=== PATIENT | male | born 1975 | race Caucasian/White ===

== ENCOUNTER 2018-06-02 19:20 | Emergency (ER) | payer OTHER ==
[~2018-06-02] VITALS: Ht 190.5 cm; Wt 172.4 kg
[~2018-06-02 19:20] MED LIST: IBUP800 PO; LANS30EC
[2018-06-02] MEDS ORDERED: Bactrim Ds Tab1 EACH PO (21:25)
[2018-06-02] MEDS ORDERED: Norco 5-325 Ta1 EACH PO (21:25)
[2018-06-02] MEDS ORDERED: CEPH500 PO (21:25)
[2018-06-02] MEDS ORDERED: ATOR20 (21:39)
[2018-06-02] MEDS ORDERED: METF500C PO (21:39)
[2018-06-02] MEDS ORDERED: LISI5 PO (21:39)
[2018-06-02] MEDS ORDERED: FLUO10 (21:40)
== END 2018-06-02 21:41 | disposition home or self-care (01) ==
LOC: ER 19:20
DX: T24.222A Burn of second degree of left knee, initial encounter (principal); T31.0 Burns involving less than 10% of body surface; E11.622 Type 2 diabetes mellitus with other skin ulcer; L97.919 Non-pressure chronic ulcer of unspecified part of right lower leg with unspecified severity; X08.8XXA Exposure to other specified smoke, fire and flames, initial encounter; Z91.040 Latex allergy status; Z88.8 Allergy status to other drugs, medicaments and biological substances; Z79.899 Other long term (current) drug therapy; E11.9 Type 2 diabetes mellitus without complications; I10 Essential (primary) hypertension
CPT/HCPCS: 16020; 99283-25

== ENCOUNTER → 2020-06-19 | Outpatient (CLI) | payer OTHER ==
[~2020-06-19] MED LIST changes: +ATOR20; +Bactrim Ds Tab1 EACH PO; +CEPH500 PO; +FLUO10; +LISI5 PO; +METF500C PO; +Norco 5-325 Ta1 EACH PO
== END | disposition home or self-care (01) ==
LOC: LAB EV 11:54 → LAB SHORT 11:54
DX: L02.91 Cutaneous abscess, unspecified (principal)
CPT/HCPCS: 87070; 87075; 87076; 87077; 87186; 87205

== ENCOUNTER → 2020-10-02 | Outpatient (CLI) | payer OTHER ==
[2020-10-02 11:08] LABS: Source, Urine Clean Catch
[2020-10-02 12:53] LABS: Appearance, Urine Hazy (Clear); Bilirubin, Urine Neg (Neg); Blood, Urine 2+ (Neg); Glucose Qualitative, Urine 4+ (Neg); Ketones, Urine Neg (Neg); Leukocyte Esterase, Urine 3+ (Neg); Nitrite, Urine Neg (Neg); Protein, Urine Neg (Neg); Urobilinogen, Urine NORM (Normal)
[2020-10-02 13:03] LABS: Color, Urine Pale Yellow (P-Yellow)
[2020-10-02 13:06] LABS: Bacteria Many /hpf; Squamous Epithelial Cells Rare /hpf (Few); White Blood Cells, Urine 50-100 /hpf (0-5)
== END | disposition home or self-care (01) ==
LOC: LAB 08:10 → LAB SHORT 08:10
PROVIDERS: Nurse Practitioner Family
DX: E11.65 Type 2 diabetes mellitus with hyperglycemia (principal); R39.89 Other symptoms and signs involving the genitourinary system
CPT/HCPCS: 81001; 82043; 87077; 87086; 87186

== ENCOUNTER → 2020-12-21 | Outpatient (CLI) | payer OTHER ==
[~2020-12-21] MED LIST changes: +Dexamethasone4 MG PO
[2020-12-21 15:06] LABS: BASOPHILS ABSOLUTE AUTO 0.01 K/mm3 (0.00-0.23); BASOPHILS PERCENT AUTO 0 % (0-2); EOSINOPHILS PERCENT AUTO 0 % (0-6); Hematocrit 49.3 % (37.0-53.0); Hemoglobin 17.4 g/dL (13.5-17.5); Mean Corpuscular HGB 30.1 pg (26.0-34.0); Mean Corpuscular HGB Conc 35.3 g/dL (31.5-36.5); Mean Corpuscular Volume 85 fL (80-100); RDW Coefficient Variation 13.1 % (11.7-14.2); RDW Standard Deviation 40.2 fL (35.1-46.3); Red Blood Cell Count 5.79 M/mm3 (4.30-5.90); White Blood Cell Count 5.92 K/mm3 (4.00-11.30)
[2020-12-21 15:15] LABS: Albumin, Blood 3.2 g/dL (3.4-5.0); Albumin/Globulin Ratio 0.7 (0.8-1.8); Bilirubin, Total 1.2 mg/dL (0.1-1.0); Creatinine, Blood 1.3 mg/dL (0.60-1.20); Globulin, Blood 4.7 g/dL (2.2-4.0); Potassium, Blood 4.8 mmol/L (3.5-5.5); Total Protein, Blood 7.9 g/dL (6.4-8.2)
[2020-12-21 15:23] LABS: IMMATURE GRAN ABSOLUTE AUTO 0.02 K/mm3 (0.00-0.10); IMMATURE GRAN PERCENT AUTO 0 % (0-1); LYMPHOCYTES ABSOLUTE AUTO 1.25 K/mm3 (0.84-5.20); MONOCYTES ABSOLUTE AUTO 0.33 K/mm3 (0.16-1.47); MONOCYTES PERCENT AUTO 6 % (4-13); Mean Platelet Volume 11.8 fL (9.1-12.4); NEUTROPHILS ABSOLUTE AUTO 4.31 K/mm3 (1.96-9.15); NEUTROPHILS PERCENT AUTO 73 % (41-73); Platelet Count 84 K/mm3 (150-400)
[2020-12-21 15:24] LABS: LYMPHOCYTES PERCENT AUTO 21 % (21-46)
== END | disposition home or self-care (01) ==
LOC: LAB 15:00 → LAB SHORT 15:00
PROVIDERS: Physician Assistant Medical
DX: U07.1 COVID-19 (principal)
CPT/HCPCS: 80053; 85025

== ENCOUNTER 2020-12-29 10:54 | Inpatient (IN) | payer OTHER ==
[~2020-12-29] VITALS: Ht 190.5 cm; Wt 137.6 kg
[2020-12-29] MEDS ORDERED: METFORMIN HCL500 M3 PO (11:59)
[2020-12-29] MEDS ORDERED: HUMULIN R500 UNIT/2 SC (12:01)
[2020-12-29] MEDS ORDERED: Oxybutynin Chlo10 MG PO (12:01)
[2020-12-29 12:16] LABS: BASOPHILS ABSOLUTE AUTO 0.02 K/mm3 (0.00-0.23); BASOPHILS PERCENT AUTO 0 % (0-2); EOSINOPHILS ABSOLUTE AUTO 0.31 K/mm3 (0.00-0.68); EOSINOPHILS PERCENT AUTO 3 % (0-6); Hematocrit 47.4 % (37.0-53.0); Hemoglobin 17.2 g/dL (13.5-17.5); IMMATURE GRAN ABSOLUTE AUTO 0.18 K/mm3 (0.00-0.10); IMMATURE GRAN PERCENT AUTO 2 % (0-1); LYMPHOCYTES ABSOLUTE AUTO 0.93 K/mm3 (0.84-5.20); LYMPHOCYTES PERCENT AUTO 8 % (21-46); MONOCYTES ABSOLUTE AUTO 0.67 K/mm3 (0.16-1.47); MONOCYTES PERCENT AUTO 6 % (4-13); Mean Corpuscular HGB 30.4 pg (26.0-34.0); Mean Corpuscular HGB Conc 36.3 g/dL (31.5-36.5); Mean Corpuscular Volume 84 fL (80-100); Mean Platelet Volume 11.4 fL (9.1-12.4); NEUTROPHILS ABSOLUTE AUTO 9.11 K/mm3 (1.96-9.15); NEUTROPHILS PERCENT AUTO 81 % (41-73); Platelet Count 142 K/mm3 (150-400); RDW Coefficient Variation 12.5 % (11.7-14.2); RDW Standard Deviation 37.5 fL (35.1-46.3); Red Blood Cell Count 5.65 M/mm3 (4.30-5.90); White Blood Cell Count 11.22 K/mm3 (4.00-11.30)
[2020-12-29 12:28] LABS: Alanine Aminotransfer (ALT/SGP 20 U/L (12-78); Albumin, Blood 2.3 g/dL (3.4-5.0); Albumin/Globulin Ratio 0.5 (0.8-1.8); Alk Phos 127 U/L (50-136); Anion Gap 12 mmol/L (6-16); Aspartate Aminotrans (AST/SGOT 19 U/L (12-37); Bilirubin, Total 1.4 mg/dL (0.1-1.0); Blood Urea Nitrogen 16 mg/dL (8-24); Bun/Creatinine Ratio 23.4 (12.0-20.0); CO2, Blood 22 mmol/L (21-32); Calcium, Blood 8.5 mg/dL (8.5-10.1); Chloride, Blood 95 mmol/L (98-108); Creatinine, Blood 0.68 mg/dL (0.60-1.20); Globulin, Blood 5.1 g/dL (2.2-4.0); Glomerular Filtration Rate >60 (60-); Glucose, Blood 469 mg/dL (70-99); Potassium, Blood 3.8 mmol/L (3.5-5.5); Sodium, Blood 129 mmol/L (136-145); Total Protein, Blood 7.4 g/dL (6.4-8.2)
[2020-12-29 12:46] LABS: Ferritin, Serum 1325 ng/mL (26-388); Lactate Dehydrogenase (Ld),Bld 390 U/L (100-240)
[2020-12-29] MEDS ORDERED: ATORVASTATIN CA80 M1 PO (15:12)
[2020-12-29] MEDS ORDERED: FLUOXETINE HCL20 M1 PO (15:13)
[2020-12-29] MEDS ORDERED: LOSARTAN POTAS100 M1 PO (15:14)
--- NOTE | 2020-12-29 19:00 | NUR ---
PT ARRIVED TO ROOM AT 1700 AND SETTLED IN. BLUE TOOTH CONTINUOUS PULSE OX APPLIED. SOB WITH ACTIVITY. REPORTS HE HAS "AN INNIE" IN REGARDS TO HIS PENIS AND HE FEELS IT WOULD BE VERY DIFFICULT TO CATH. REPORT FROM ED WAS WHEN HE WENT TO [facility] HIS SATS DROPPED TO 70'S. DID GET HIM UP AND SATS REMAINED IN THE 90'S. QUITE CHATTY. INFORMED PT HE COULD CALL HIS TO BRING IN HIS CPAP FROM HOME.
--- NOTE | 2020-12-30 01:07 | NUR ---
NURSE NOTED PT HEPARIN PLACED ON HOLD FOR 1 HOUR AT 0058 AND WILL BE RESTARTED AT 0158 AT 12UNITS/KG/HR PER PHARMACY.
[2020-12-30 05:02] LABS: BASOPHILS ABSOLUTE AUTO 0.01 K/mm3 (0.00-0.23); BASOPHILS PERCENT AUTO 0 % (0-2); EOSINOPHILS PERCENT AUTO 0 % (0-6); Hematocrit 44.8 % (37.0-53.0); Hemoglobin 15.4 g/dL (13.5-17.5); IMMATURE GRAN ABSOLUTE AUTO 0.13 K/mm3 (0.00-0.10); IMMATURE GRAN PERCENT AUTO 2 % (0-1); LYMPHOCYTES ABSOLUTE AUTO 0.66 K/mm3 (0.84-5.20); LYMPHOCYTES PERCENT AUTO 11 % (21-46); MONOCYTES ABSOLUTE AUTO 0.26 K/mm3 (0.16-1.47); MONOCYTES PERCENT AUTO 4 % (4-13); Mean Corpuscular HGB 29.7 pg (26.0-34.0); Mean Corpuscular HGB Conc 34.4 g/dL (31.5-36.5); Mean Corpuscular Volume 87 fL (80-100); Mean Platelet Volume 11.4 fL (9.1-12.4); NEUTROPHILS ABSOLUTE AUTO 5.25 K/mm3 (1.96-9.15); NEUTROPHILS PERCENT AUTO 83 % (41-73); Platelet Count 92 K/mm3 (150-400); RDW Coefficient Variation 12.6 % (11.7-14.2); RDW Standard Deviation 39.5 fL (35.1-46.3); Red Blood Cell Count 5.18 M/mm3 (4.30-5.90); White Blood Cell Count 6.31 K/mm3 (4.00-11.30)
[2020-12-30 05:19] LABS: Anion Gap 9 mmol/L (6-16); Blood Urea Nitrogen 16 mg/dL (8-24); Bun/Creatinine Ratio 23.7 (12.0-20.0); CO2, Blood 25 mmol/L (21-32); Calcium, Blood 8.7 mg/dL (8.5-10.1); Chloride, Blood 98 mmol/L (98-108); Creatinine, Blood 0.68 mg/dL (0.60-1.20); Glomerular Filtration Rate >60 (60-); Glucose, Blood 305 mg/dL (70-99); Potassium, Blood 5.3 mmol/L (3.5-5.5); Sodium, Blood 132 mmol/L (136-145)
--- NOTE | 2020-12-30 16:54 | NUR ---
SHIFT SUMMARY PT UP TO BEDSIDE COMMODE INDEPENDENTLY TO URINATE. SATS REMAIN STABLE IN LOW 90'S. CAN DROP TO HIGH 80'S BUT RECOVERS QUICKLY. SOB AFTER ACTIVITY AND NEEDS TO BE REMINDED TO NOT TALK SO MUCH. HAS REMAINED STABLE RESPIRATORY LACY THROUGH THE SHIFT. DID REPORT HEADACHE APPROX LUNCHTIME BUT IBUPROFEN ORDERED WAS EFFECTIVE.
--- NOTE | 2020-12-30 22:58 | NUR ---
SPOKE TO DR. GALE REGARDING PT'S CBG OF 428, ADMINISTRATION OF 60 UNITS HUMULIN R, WITH A REPEAT CBG OF 353. PHYSICIAN WANTS TO MONITOR PT'S CBGS. NO FURTHER ORDERS RECEIVED AT THIS TIME. CONTINUE TO MONITOR.
[2020-12-31 05:51] LABS: BASOPHILS ABSOLUTE AUTO 0.02 K/mm3 (0.00-0.23); BASOPHILS PERCENT AUTO 0 % (0-2); EOSINOPHILS PERCENT AUTO 0 % (0-6); Hematocrit 44.7 % (37.0-53.0); Hemoglobin 16.1 g/dL (13.5-17.5); IMMATURE GRAN ABSOLUTE AUTO 0.11 K/mm3 (0.00-0.10); IMMATURE GRAN PERCENT AUTO 1 % (0-1); LYMPHOCYTES ABSOLUTE AUTO 0.62 K/mm3 (0.84-5.20); LYMPHOCYTES PERCENT AUTO 6 % (21-46); MONOCYTES ABSOLUTE AUTO 0.59 K/mm3 (0.16-1.47); MONOCYTES PERCENT AUTO 6 % (4-13); Mean Corpuscular HGB 30.4 pg (26.0-34.0); Mean Corpuscular Volume 85 fL (80-100); Mean Platelet Volume 11.2 fL (9.1-12.4); NEUTROPHILS ABSOLUTE AUTO 9.33 K/mm3 (1.96-9.15); NEUTROPHILS PERCENT AUTO 88 % (41-73); Platelet Count 114 K/mm3 (150-400); RDW Coefficient Variation 12.8 % (11.7-14.2); RDW Standard Deviation 38.1 fL (35.1-46.3); Red Blood Cell Count 5.29 M/mm3 (4.30-5.90); White Blood Cell Count 10.67 K/mm3 (4.00-11.30)
[2020-12-31 06:16] LABS: Anion Gap 8 mmol/L (6-16); Blood Urea Nitrogen 22 mg/dL (8-24); CO2, Blood 25 mmol/L (21-32); Calcium, Blood 8.4 mg/dL (8.5-10.1); Chloride, Blood 98 mmol/L (98-108); Creatinine, Blood 0.61 mg/dL (0.60-1.20); Glomerular Filtration Rate >60 (60-); Glucose, Blood 252 mg/dL (70-99); Potassium, Blood 4.1 mmol/L (3.5-5.5); Sodium, Blood 131 mmol/L (136-145)
--- NOTE | 2020-12-31 17:31 | NUR ---
SHIFT SUMMARY PT HAS BEEN INDEPENDENT IN ROOM. CONTINUES TO GET SOB WITH ACTIVITY AND WHEN HE TALKS TOO MUCH. SATS DROPPED TO 87% AFTER RT COMPLETED HOME O2 EVAL AND HE WAS TALKING ON THE PHONE. REMINDED HIM TO BREATH MORE AND TALK LESS. NO REPORT OF HEADACHE TODAY.
--- NOTE | 2020-12-31 19:20 | NUR ---
ASSUMED CARE RECEIVED REPORT FROM TORY LIANG. PT RESTING, IN NAD. NO ACUTE NEEDS ASSESSED AT THIS TIME. CALL LIGHT, POSSESSIONS IN REACH.
[2021-01-01 06:05] LABS: BASOPHILS ABSOLUTE AUTO 0.01 K/mm3 (0.00-0.23); BASOPHILS PERCENT AUTO 0 % (0-2); EOSINOPHILS ABSOLUTE AUTO 0.01 K/mm3 (0.00-0.68); EOSINOPHILS PERCENT AUTO 0 % (0-6); Hematocrit 46.8 % (37.0-53.0); Hemoglobin 16.4 g/dL (13.5-17.5); IMMATURE GRAN ABSOLUTE AUTO 0.14 K/mm3 (0.00-0.10); IMMATURE GRAN PERCENT AUTO 1 % (0-1); LYMPHOCYTES ABSOLUTE AUTO 0.79 K/mm3 (0.84-5.20); LYMPHOCYTES PERCENT AUTO 7 % (21-46); MONOCYTES PERCENT AUTO 8 % (4-13); Mean Corpuscular HGB 29.9 pg (26.0-34.0); Mean Corpuscular Volume 85 fL (80-100); Mean Platelet Volume 11.1 fL (9.1-12.4); NEUTROPHILS ABSOLUTE AUTO 10.16 K/mm3 (1.96-9.15); NEUTROPHILS PERCENT AUTO 84 % (41-73); Platelet Count 122 K/mm3 (150-400); RDW Coefficient Variation 12.7 % (11.7-14.2); RDW Standard Deviation 38.3 fL (35.1-46.3); Red Blood Cell Count 5.49 M/mm3 (4.30-5.90); White Blood Cell Count 12.11 K/mm3 (4.00-11.30)
[2021-01-01 06:31] LABS: Anion Gap 6 mmol/L (6-16); Blood Urea Nitrogen 23 mg/dL (8-24); Bun/Creatinine Ratio 36.6 (12.0-20.0); CO2, Blood 26 mmol/L (21-32); Calcium, Blood 8.7 mg/dL (8.5-10.1); Chloride, Blood 101 mmol/L (98-108); Creatinine, Blood 0.63 mg/dL (0.60-1.20); Glomerular Filtration Rate >60 (60-); Glucose, Blood 162 mg/dL (70-99); Sodium, Blood 133 mmol/L (136-145)
--- NOTE | 2021-01-01 07:35 | NUR ---
SHIFT SUMMARY PT RESTING, IN NAD. NO ACUTE CONCERNS TO REPORT OVERNIGHT. APPEARED TO SLEEP WELL. VS REVIEWED,WNL; O2 SATS STABLE ON CPAP WITH 6L/O2 BLEED-IN OR 6L/HFNC. PT INDEPENDENT TO BSC. MEDICATED X1 FOR C/O ZAVALA, WITH GOOD RELIEF. NO ACUTE NEEDS ASSESSED AT THIS TIME. CALL LIGHT, POSSESSIONS IN REACH, BED IN LOW AND LOCKED POSITION. REPORT GIVEN TO TORY DAVIS.
--- NOTE | 2021-01-02 04:59 | NUR ---
SHIFT SUMMARY- PT. A&OX4, PLEASANT AND COOPERATIVE WITH CARE. TITRATED O2 THIS AM FROM 6-5L HIGH FLOW NC. PT. TOLERATING WELL, SATS MAINTAINED >90. COMPLAINTS OF HEAD/SINUS PRESSURE DURING THE NIGHT. MEDICATED PER EMAR WITH SOME RELIEF. PT. RESTED QUIETLY T/O THE NIGHT, NO APPARENT DISTRESS NOTED, VSS. CALL LIGHT WITHIN REACH AND SIDE RAILS UPX2. WILL CONT TO MONITOR.
[2021-01-02 05:38] LABS: BASOPHILS ABSOLUTE AUTO 0.01 K/mm3 (0.00-0.23); BASOPHILS PERCENT AUTO 0 % (0-2); EOSINOPHILS ABSOLUTE AUTO 0.01 K/mm3 (0.00-0.68); EOSINOPHILS PERCENT AUTO 0 % (0-6); Hematocrit 44.6 % (37.0-53.0); Hemoglobin 15.7 g/dL (13.5-17.5); IMMATURE GRAN ABSOLUTE AUTO 0.08 K/mm3 (0.00-0.10); IMMATURE GRAN PERCENT AUTO 1 % (0-1); LYMPHOCYTES ABSOLUTE AUTO 0.96 K/mm3 (0.84-5.20); LYMPHOCYTES PERCENT AUTO 9 % (21-46); MONOCYTES ABSOLUTE AUTO 1.34 K/mm3 (0.16-1.47); MONOCYTES PERCENT AUTO 13 % (4-13); Mean Corpuscular HGB 30.1 pg (26.0-34.0); Mean Corpuscular HGB Conc 35.2 g/dL (31.5-36.5); Mean Corpuscular Volume 85 fL (80-100); Mean Platelet Volume 11.1 fL (9.1-12.4); NEUTROPHILS ABSOLUTE AUTO 7.97 K/mm3 (1.96-9.15); NEUTROPHILS PERCENT AUTO 77 % (41-73); Platelet Count 89 K/mm3 (150-400); RDW Coefficient Variation 12.8 % (11.7-14.2); RDW Standard Deviation 38.8 fL (35.1-46.3); Red Blood Cell Count 5.22 M/mm3 (4.30-5.90); White Blood Cell Count 10.37 K/mm3 (4.00-11.30)
[2021-01-02 05:54] LABS: Anion Gap 5 mmol/L (6-16); Blood Urea Nitrogen 25 mg/dL (8-24); Bun/Creatinine Ratio 32.4 (12.0-20.0); CO2, Blood 29 mmol/L (21-32); Calcium, Blood 8.4 mg/dL (8.5-10.1); Chloride, Blood 101 mmol/L (98-108); Creatinine, Blood 0.77 mg/dL (0.60-1.20); Glomerular Filtration Rate >60 (60-); Glucose, Blood 204 mg/dL (70-99); Potassium, Blood 4.7 mmol/L (3.5-5.5); Sodium, Blood 135 mmol/L (136-145)
[2021-01-02] MEDS ORDERED: PRED20 PO (08:44)
[2021-01-02] MEDS ORDERED: Vitamin D1000 UNI1 PO (08:44)
[2021-01-06] MEDS ORDERED: Norco 5-325 Ta1 EACH PO (23:43)
[2021-01-06] MEDS ORDERED: Levaquin750 MG PO (23:47)
== END 2021-01-02 11:27 | disposition home or self-care (01) | DRG 177 ==
LOC: ER 10:54 → MEDS 14:58
PROVIDERS: Emergency Medicine; ADMIT Family Medicine
PROC: 8E0ZXY6 Isolation (ICD-10-PCS; principal; 2020-12-29)
PROC: 3E0333Z Introduction of Anti-inflammatory into Peripheral Vein, Percutaneous Approach (ICD-10-PCS; 2020-12-29)
DX: U07.1 COVID-19 (principal); J96.01 Acute respiratory failure with hypoxia; J12.82 Pneumonia due to coronavirus disease 2019; E87.1 Hypo-osmolality and hyponatremia; J98.2 Interstitial emphysema; I10 Essential (primary) hypertension; G47.33 Obstructive sleep apnea (adult) (pediatric); L30.9 Dermatitis, unspecified; F32.9 Major depressive disorder, single episode, unspecified; E66.09 Other obesity due to excess calories; H43.819 Vitreous degeneration, unspecified eye; E11.65 Type 2 diabetes mellitus with hyperglycemia; Z91.041 Radiographic dye allergy status; Z91.040 Latex allergy status; Z91.014 Allergy to mammalian meats; Z91.013 Allergy to seafood; Z79.4 Long term (current) use of insulin; Z79.899 Other long term (current) drug therapy; Z68.39 Body mass index [BMI] 39.0-39.9, adult
CPT/HCPCS: 36415; 71045; 80048; 80053; 82728; 82947; 83615; 85025; 85379; 85651; 86140; 94660; 94761; 94762; 96374; 99285-25; A9270; J1100; J1650; J1815; J2920; J7030; J7509; J7512

== ENCOUNTER 2021-01-08 05:59 | Inpatient (IN) | payer OTHER ==
[~2021-01-08] VITALS: Ht 190.5 cm; Wt 131.0 kg
[~2021-01-08 05:59] MED LIST changes: +ATORVASTATIN CA80 M1 PO; +FLUOXETINE HCL20 M1 PO; +HUMULIN R500 UNIT/2 SC; +LOSARTAN POTAS100 M1 PO; +Levaquin750 MG PO; +METFORMIN HCL500 M3 PO; +Oxybutynin Chlo10 MG PO; +PRED20 PO; +Vitamin D1000 UNI1 PO
[2021-01-08 06:24] LABS: BASOPHILS ABSOLUTE AUTO 0.04 K/mm3 (0.00-0.23); BASOPHILS PERCENT AUTO 0 % (0-2); EOSINOPHILS ABSOLUTE AUTO 0.05 K/mm3 (0.00-0.68); EOSINOPHILS PERCENT AUTO 0 % (0-6); Hematocrit 49.4 % (37.0-53.0); Hemoglobin 17.3 g/dL (13.5-17.5); IMMATURE GRAN ABSOLUTE AUTO 0.22 K/mm3 (0.00-0.10); IMMATURE GRAN PERCENT AUTO 1 % (0-1); LYMPHOCYTES PERCENT AUTO 7 % (21-46); MONOCYTES PERCENT AUTO 11 % (4-13); Mean Corpuscular HGB 30.1 pg (26.0-34.0); Mean Corpuscular Volume 86 fL (80-100); Mean Platelet Volume 10.2 fL (9.1-12.4); NEUTROPHILS ABSOLUTE AUTO 17.32 K/mm3 (1.96-9.15); NEUTROPHILS PERCENT AUTO 81 % (41-73); Platelet Count 229 K/mm3 (150-400); RDW Coefficient Variation 12.9 % (11.7-14.2); RDW Standard Deviation 39.6 fL (35.1-46.3); Red Blood Cell Count 5.74 M/mm3 (4.30-5.90); White Blood Cell Count 21.53 K/mm3 (4.00-11.30)
[2021-01-08 06:46] LABS: Alanine Aminotransfer (ALT/SGP 38 U/L (12-78); Albumin, Blood 2.8 g/dL (3.4-5.0); Albumin/Globulin Ratio 0.5 (0.8-1.8); Alk Phos 133 U/L (50-136); Anion Gap 9 mmol/L (6-16); Aspartate Aminotrans (AST/SGOT 12 U/L (12-37); Bilirubin, Total 1.3 mg/dL (0.1-1.0); Blood Urea Nitrogen 18 mg/dL (8-24); Bun/Creatinine Ratio 24.9 (12.0-20.0); CO2, Blood 30 mmol/L (21-32); Calcium, Blood 9.1 mg/dL (8.5-10.1); Chloride, Blood 95 mmol/L (98-108); Creatinine, Blood 0.72 mg/dL (0.60-1.20); Ethanol (Alcohol), Blood, Med <3 mg/dL; Globulin, Blood 5.2 g/dL (2.2-4.0); Glomerular Filtration Rate >60 (60-); Glucose, Blood 63 mg/dL (70-99); Potassium, Blood 3.2 mmol/L (3.5-5.5); Sodium, Blood 134 mmol/L (136-145)
[2021-01-08 07:43] LABS: Source, Urine Clean Catch
[2021-01-08 07:50] LABS: Appearance, Urine Clear (Clear); Bilirubin, Urine Neg (Neg); Blood, Urine 2+ (Neg); Color, Urine Yellow (P-Yellow); Glucose Qualitative, Urine 4+ (Neg); Ketones, Urine 3+ (Neg); Leukocyte Esterase, Urine 1+ (Neg); Nitrite, Urine Neg (Neg); Protein, Urine 1+ (Neg); Urobilinogen, Urine 3+ (Normal)
[2021-01-08 08:02] LABS: White Blood Cells, Urine 25-50 /hpf (0-5)
[2021-01-08 08:04] LABS: Bacteria Many /hpf; Hyaline Casts 0-2 /lpf (0-2); Squamous Epithelial Cells Mod /hpf (Few)
--- NOTE | 2021-01-08 15:36 | NUR ---
MESSAGE LEFT ON DR VALERA VOICE REMINDING HIM OF CONSULT TO D/C PEG TUBE AND PERMACATH. ALSO MESSAGE LEFT WITH CHILDREN'S TUTOR STAFF.
--- NOTE | 2021-01-08 17:20 | NUR ---
SHIFT SUMMARY PATIENT ADMITTED TO THE FLOOR EARLY THIS SHIFT. PATIENT ALERT, SLIGHTLY CONFUSED UPON ARRIVAL. PATIENT WITH BLOOD SUGARS IN THE 60S-70S SOON AFTER ARRIVAL. PATIENT MEDICATED WITH GLUCOSE TO RAISE BLOOD SUGAR, WHICH WOULD RAISE THEN DROP SOON AFTER. DR CONTACTED AFTER GLOCOSE DROPPED AND GLUCOSE ADMINISTERED AGAIN. THIS OCCURED SEVERAL TIMES TO MAINTAIN PATIENT'S BLOOD SUGAR. BLOOD SUGAR RAISED TO 150S EARLY AFTERNOON, DROPPED TO 130 A SHORT TIME LATER, THEN BACK TO THE 60-70S RANGE. PATIENT CURRENTLY ON D5W @ 125 ML/HR AND DRINKING CRANBERRY JUICE TO MAINTAIN GLUCOSE LEVEL. PATIENT HAS BEEN LETHARGIC, YET RESPONSIVE AND COOPERATIVE THIS SHIFT. PATIENT MEDICATED 1X FOR HEADACHE PER EMAR. PATIENT CURRENTLY SITTING UP IN BED ON PHONE.
--- NOTE | 2021-01-09 00:54 | NUR ---
BLOOD SUGARS IN THE [facility]' HOSPITALIST DR. LEONE NOTIFED. D5 WITH HALF NORMAL SALINE DC'D. WILL CONTINUE TO MONITOR.
[2021-01-09 05:01] LABS: BASOPHILS ABSOLUTE AUTO 0.03 K/mm3 (0.00-0.23); BASOPHILS PERCENT AUTO 0 % (0-2); EOSINOPHILS ABSOLUTE AUTO 0.12 K/mm3 (0.00-0.68); EOSINOPHILS PERCENT AUTO 1 % (0-6); Hematocrit 44.1 % (37.0-53.0); Hemoglobin 15.6 g/dL (13.5-17.5); IMMATURE GRAN ABSOLUTE AUTO 0.06 K/mm3 (0.00-0.10); IMMATURE GRAN PERCENT AUTO 1 % (0-1); LYMPHOCYTES ABSOLUTE AUTO 1.43 K/mm3 (0.84-5.20); LYMPHOCYTES PERCENT AUTO 13 % (21-46); MONOCYTES ABSOLUTE AUTO 1.24 K/mm3 (0.16-1.47); MONOCYTES PERCENT AUTO 11 % (4-13); Mean Corpuscular HGB 30.2 pg (26.0-34.0); Mean Corpuscular HGB Conc 35.4 g/dL (31.5-36.5); Mean Corpuscular Volume 86 fL (80-100); Mean Platelet Volume 10.1 fL (9.1-12.4); NEUTROPHILS ABSOLUTE AUTO 8.33 K/mm3 (1.96-9.15); NEUTROPHILS PERCENT AUTO 74 % (41-73); Platelet Count 112 K/mm3 (150-400); RDW Standard Deviation 39.8 fL (35.1-46.3); Red Blood Cell Count 5.16 M/mm3 (4.30-5.90); White Blood Cell Count 11.21 K/mm3 (4.00-11.30)
--- NOTE | 2021-01-09 05:02 | NUR ---
SUPERVISOR IRRIGATION SUMMARY PT A/O X4, ABLE TO MAKE NEEDS KNOWN. PT HAS BEEN HAVING HEADACHE ALL NIGHT. MEDICATED FOR PAIN X2 AND MEDICATED FOR NAUSEA X1 TONIGHT. PT CONTINUES TO HAVE L SIDED FACIAL NUMBESS, THIS WAS NOTED ON ADMISSION. PT ALSO STATES HE HAS SOME CHEST TIGHTNESS ON AND OFF FOR THE PAST COUPLE OF DAYS. DR. BRAGA NOTIFIED. TROPONIN X1 ORDERED. PT AMBULATES WITH SBA WITH FWW. D5 WITH HALF NS HAS BEEN DC'D OVERNIGHT. BLOOD SUGAR OVER 250'S OVERNIGHT. CALL LIGHT WITHIN REACH, WILL CONTINUE TO MONITOR.
[2021-01-09 06:16] LABS: Anion Gap 7 mmol/L (6-16); Blood Urea Nitrogen 10 mg/dL (8-24); Bun/Creatinine Ratio 15.4 (12.0-20.0); CO2, Blood 28 mmol/L (21-32); Chloride, Blood 95 mmol/L (98-108); Creatinine, Blood 0.65 mg/dL (0.60-1.20); Glomerular Filtration Rate >60 (60-); Glucose, Blood 253 mg/dL (70-99); Magnesium, Blood 1.8 mg/dL (1.6-2.4); Potassium, Blood 3.7 mmol/L (3.5-5.5); Sodium, Blood 130 mmol/L (136-145); Troponin I <0.015 ng/mL (0.000-0.040)
--- NOTE | 2021-01-09 07:50 | NUR ---
PT RECIEVEDIN BED,AAOX4,C/O H/A, VITALS WNL, NO ACUTE DISTRESS NOTED. CALL LIGHT WNL ,MONITORING CONTINUES.
--- NOTE | 2021-01-09 17:53 | NUR ---
AAOX4, NO ACUTE DISTRESS NOTED, POSITIVE BLOOD CULTURES ,GRAM + COCCI AND CLUSTERS, NOTIFIED,NNO AT THIS TIME,AWAITING GROWTH. MEDICATED FOR PAIN X2, 2ND DOSE OF OXYCODONE 5MG GIVEN WITH TYLENOL AND PT RELIEVED FROM PAIN. COOL COMPRESS HELPED WELL. DR MCCOLLUM ORDERED SOME LABS AND PT TO START SOLU MEDROL TONIGHT. VISITED WITH FAMILY. PT STABLE CONTINUE WITH IV ABTS, STARTED ON BS ACHS WITH INSULIN COVERAGE.CALL LIGHT WITHIN RANGE.MONITORING CONTINUES.
--- NOTE | 2021-01-10 04:59 | NUR ---
SUMMARY NO NEW ISSUES NOTED. PT TX FOR HEADACHE ORDERED. PT HAS SLEPT FOR MOST OF SHIFT. PT CURRENTLY SLEEPING IN NO DISTRESS. CALL LIGHT IN REACH.
[2021-01-10 05:03] LABS: BASOPHILS ABSOLUTE AUTO 0.01 K/mm3 (0.00-0.23); BASOPHILS PERCENT AUTO 0 % (0-2); EOSINOPHILS ABSOLUTE AUTO 0.01 K/mm3 (0.00-0.68); EOSINOPHILS PERCENT AUTO 0 % (0-6); Hematocrit 40.7 % (37.0-53.0); Hemoglobin 14.4 g/dL (13.5-17.5); IMMATURE GRAN ABSOLUTE AUTO 0.04 K/mm3 (0.00-0.10); IMMATURE GRAN PERCENT AUTO 1 % (0-1); LYMPHOCYTES ABSOLUTE AUTO 0.78 K/mm3 (0.84-5.20); LYMPHOCYTES PERCENT AUTO 10 % (21-46); MONOCYTES ABSOLUTE AUTO 0.21 K/mm3 (0.16-1.47); MONOCYTES PERCENT AUTO 3 % (4-13); Mean Corpuscular HGB 30.2 pg (26.0-34.0); Mean Corpuscular HGB Conc 35.4 g/dL (31.5-36.5); Mean Corpuscular Volume 85 fL (80-100); Mean Platelet Volume 10.5 fL (9.1-12.4); NEUTROPHILS ABSOLUTE AUTO 6.43 K/mm3 (1.96-9.15); NEUTROPHILS PERCENT AUTO 86 % (41-73); Platelet Count 98 K/mm3 (150-400); RDW Coefficient Variation 12.9 % (11.7-14.2); RDW Standard Deviation 39.3 fL (35.1-46.3); Red Blood Cell Count 4.77 M/mm3 (4.30-5.90); White Blood Cell Count 7.48 K/mm3 (4.00-11.30)
[2021-01-10 05:35] LABS: Anion Gap 5 mmol/L (6-16); Blood Urea Nitrogen 14 mg/dL (8-24); Bun/Creatinine Ratio 24.1 (12.0-20.0); CO2, Blood 27 mmol/L (21-32); Calcium, Blood 8.4 mg/dL (8.5-10.1); Chloride, Blood 100 mmol/L (98-108); Creatinine, Blood 0.58 mg/dL (0.60-1.20); Glomerular Filtration Rate >60 (60-); Glucose, Blood 324 mg/dL (70-99); Sodium, Blood 132 mmol/L (136-145)
--- NOTE | 2021-01-10 18:29 | NUR ---
PT ALERT AND ORIENTED X4, CONTINUE ON IV ABTS AND STERIODS, NO PAIN ALL SHIFT, LABS ORDERED AND DONE. VISITED WITH FAMILY. EXCELLENT APPETITE. CALL LIGHT WNL, WILL CONTINUE TO MONITOR.
--- NOTE | 2021-01-10 21:21 | NUR ---
2114 DR SANCHEZ CALLED AND INFORMED OF PT CBG. PROVIDER ORDERED TO GIVE 5 UNITS OF INSULIN W/ SEMGLEE DOSE.
--- NOTE | 2021-01-11 04:19 | NUR ---
SUMMARY PT HAD NOTED HIGH CBG THIS SHIFT. PT TX PER EMAR. PT HAS DENIED SOB WHILE ON ROOM AIR WHILE AWAKE. PT COMPLIENT WITH CPAP. PT C/O INSOMNIA THIS SHIFT. PT AGREES WITH SITTING UP IN CHAIR DURING DAY AND MEALS. PT ALSO WOULD BENEFIT FROM A SLEEP AID. WILL PASS ON TO DAY RN. PT CURRENTLY AWAKE IN NO DISTRESS. CALL LIGHT IN REACH.
--- NOTE | 2021-01-11 17:32 | NUR ---
SHIFT SUMMARY PT IS AOX4. PT MEDICATED FOR PAIN X1 PER EMAR. PT DENIES N/V, SOB. PT IS ON 3 L VIA NC WITH SATS GREATER THAN 90%. PT IS INDEPENDENT IN ROOM. ENHANCED ISOLATION PRECAUTIONS MAINTAINED T/O SHIFT AND ISOLATION TO BE DC'D TOMORROW PER INFECTION CONTROL. PT HAD VISITOR THIS SHIFT. PT APPETITE IS GOOD. PT IS IN BED, CALL LIGHT IN REACH, LOW POSITION.
--- NOTE | 2021-01-11 17:47 | NUR ---
NEXT OF KIN/CONTACTS: RIKA BROWN, SPOUSE / PARTNER, UPDATE 01/11/21: PER CHART REVIEW WITH DR. CLARK THIS AM, PT. NOT YET APPROPRIATE FOR DISCHARGE. PT. WAS HOSPITALIZED EARLIER THIS MONTH DUE TO COVID19 (DISCHARGED ON 01/02/21. PT. WILL NEED CLOSE F/U POST DISCHARGE. ANTICIPATE NEEDS AT TIME OF DISCHARGE TO INCLUDE: HOSPITAL F/U WITH PCP WITHIN 5 DAYS, PT. WOULD POTENTIALLY BENEFIT FROM RECEIVING NURSING CARE OR CHRONIC CARE MANAGEMENT.
--- NOTE | 2021-01-11 21:45 | NUR ---
DR NAQVI notified BG 428 & change in order to start Lantus 13 units tomorrow twice daily 0730 & 1630. Order recieved to start 13 units lantus insulin tonight for BG 428. 15 units regular insulin was given. PT his boom stick worker consult ordered. PT says he has avoided sugary snacks tonight but is on IV steroids. Will administer 13 units lantus pen insulin.
--- NOTE | 2021-01-12 06:37 | NUR ---
PT alert talking about his hallucinations at home of Father. PT had covid 19 dx 12/21/20 & is IDDM Obese with hx of reoccuring staph abscess lower extremity cultured May 2020. 1 Positive staph blood culture this admission. PT says prior hospital stay he had massive clot in lt nare which he removed per his report without excessive bleeding. LT facial sinus pain pressure continues up to 8/10 but relieved by 5 mg oxycodone & 650 mg tylenol twice in 12 hours. BG elevated to 428 on IV steroid. Short & long acting insulin given. Recent WT loss currwently 129 kg was as high as 460 lbs. Room air sat 91 to 92% at rest. Has bioxx in room
[2021-01-12] MEDS ORDERED: MIRALAX17 GM PO (12:43)
[2021-01-12] MEDS ORDERED: PRED20 PO (12:56)
--- NOTE | 2021-01-12 17:05 | NUR ---
DISCHARGE DISCHARGE MEDICATIONS AND INSTRUCTIONS EXPLAINED TO PATIENT. PATIENT STATED UNDERSTANDING. FOLLOW UP WITH [facility] SCHEDULED. IV REMOVED WITHOUT ISSUE. BELONGINGS WITH PATIENT. DANIELLE DELIVERED NEW PORTABLE OXYGEN TANK FOR RIDE HOME. PATIENT TRANSFERED TO PRIVATE VEHICLE VIA WHEELCHAIR.
--- NOTE | 2021-01-12 18:43 | NUR ---
Update 01/12/21: Per chart review this am with Dr. Clifton, pt. appropriate today for discharge. Pt. has strong family support. Denies concerns with safety at home or barriers to discharge. Scheduled with PCP on 01/15/21. Endocrinology referral placed in [facility] EMR with note requesting Dr. Rizo review to determine how soon patient will need to be scheduled. Pt. is aware. Discharge letter given to pt. with appointment information added. Pt. denied any further needs at this time. I have reached out to [facility] case management to request that they contact pt. to provide on going assistance with resources as needed.
[2021-01-14 06:10] LABS: HSV-1 DNA Negative (Negative); HSV-2 DNA Negative (Negative)
== END 2021-01-12 17:10 | disposition home or self-care (01) | DRG 871 ==
LOC: ER 05:59 → MEDS 06:00
PROVIDERS: Emergency Medicine; ADMIT Internal Medicine
DX: A41.01 Sepsis due to Methicillin susceptible Staphylococcus aureus (principal); G93.41 Metabolic encephalopathy; N39.0 Urinary tract infection, site not specified; D69.6 Thrombocytopenia, unspecified; F32.A Depression, unspecified; I10 Essential (primary) hypertension; E11.649 Type 2 diabetes mellitus with hypoglycemia without coma; E66.01 Morbid (severe) obesity due to excess calories; Z68.37 Body mass index [BMI] 37.0-37.9, adult; R20.2 Paresthesia of skin; Z23 Encounter for immunization; E11.51 Type 2 diabetes mellitus with diabetic peripheral angiopathy without gangrene; J01.90 Acute sinusitis, unspecified; K70.30 Alcoholic cirrhosis of liver without ascites; Z86.16 Personal history of COVID-19; Z68.38 Body mass index [BMI] 38.0-38.9, adult; G50.9 Disorder of trigeminal nerve, unspecified; G47.33 Obstructive sleep apnea (adult) (pediatric); E78.5 Hyperlipidemia, unspecified; M19.90 Unspecified osteoarthritis, unspecified site; Z91.013 Allergy to seafood; Z91.018 Allergy to other foods; Z91.012 Allergy to eggs; Z91.040 Latex allergy status; Z79.4 Long term (current) use of insulin; Z79.899 Other long term (current) drug therapy
CPT/HCPCS: 36415; 36430; 70450; 71045; 80048; 80053; 81001; 82947; 83605; 83735; 84145; 84484; 85025; 85651; 86140; 86141; 87040; 87077; 87086; 87147; 87186; 87529; 90686; 93005; 93010; 94762; 96365; 96366; 96375; 96376; 99285-25; A9270; C1751; G0008; G0378; G0480; J0456; J0696; J1815; J2405; J2920; J7042; J7050; J7070; J7512

== ENCOUNTER 2021-01-20 11:04 | Inpatient (IN) | payer OTHER ==
[~2021-01-20] VITALS: Ht 190.5 cm; Wt 127.0 kg
[~2021-01-20 11:04] MED LIST changes: +MIRALAX17 GM PO
[2021-01-20 11:43] LABS: BASOPHILS ABSOLUTE AUTO 0.04 K/mm3 (0.00-0.23); BASOPHILS PERCENT AUTO 0 % (0-2); EOSINOPHILS ABSOLUTE AUTO 0.02 K/mm3 (0.00-0.68); EOSINOPHILS PERCENT AUTO 0 % (0-6); Hematocrit 45.6 % (37.0-53.0); Hemoglobin 16.3 g/dL (13.5-17.5); IMMATURE GRAN PERCENT AUTO 1 % (0-1); LYMPHOCYTES ABSOLUTE AUTO 1.97 K/mm3 (0.84-5.20); LYMPHOCYTES PERCENT AUTO 16 % (21-46); MONOCYTES ABSOLUTE AUTO 1.03 K/mm3 (0.16-1.47); MONOCYTES PERCENT AUTO 8 % (4-13); Mean Corpuscular HGB 30.5 pg (26.0-34.0); Mean Corpuscular HGB Conc 35.7 g/dL (31.5-36.5); Mean Corpuscular Volume 85 fL (80-100); Mean Platelet Volume 10.1 fL (9.1-12.4); NEUTROPHILS ABSOLUTE AUTO 9.42 K/mm3 (1.96-9.15); NEUTROPHILS PERCENT AUTO 75 % (41-73); Platelet Count 117 K/mm3 (150-400); RDW Coefficient Variation 13.8 % (11.7-14.2); RDW Standard Deviation 41.6 fL (35.1-46.3); Red Blood Cell Count 5.35 M/mm3 (4.30-5.90); White Blood Cell Count 12.58 K/mm3 (4.00-11.30)
[2021-01-20 12:00] LABS: Alanine Aminotransfer (ALT/SGP 46 U/L (12-78); Albumin, Blood 2.8 g/dL (3.4-5.0); Albumin/Globulin Ratio 0.6 (0.8-1.8); Alk Phos 177 U/L (50-136); Anion Gap 6 mmol/L (6-16); Aspartate Aminotrans (AST/SGOT 16 U/L (12-37); Bilirubin, Total 1.5 mg/dL (0.1-1.0); Blood Urea Nitrogen 12 mg/dL (8-24); CO2, Blood 29 mmol/L (21-32); Calcium, Blood 8.9 mg/dL (8.5-10.1); Chloride, Blood 95 mmol/L (98-108); Globulin, Blood 4.6 g/dL (2.2-4.0); Glomerular Filtration Rate >60 (60-); Glucose, Blood 357 mg/dL (70-99); Potassium, Blood 4.2 mmol/L (3.5-5.5); Sodium, Blood 130 mmol/L (136-145); Total Protein, Blood 7.4 g/dL (6.4-8.2); Troponin I <0.015 ng/mL (0.000-0.040)
--- NOTE | 2021-01-20 16:43 | NUR ---
ARRIVAL TO PCU/SHIFT SUMMAR PATIENT ARRIVED TO PCU FROM ED AND TRANSFERED TO PCU BED BY AMBULATING TO THE PCU BED. PATIENT ARRIVED APROX 1555. VSS. TELE SINUS TACH. SPO2 >90% ON RA. PATIENT REPORTS HEADACHE FOCUSED ON LEFT SIDE. PATIENT RECEIVED TYLENOL. PATIENT ORIENTATED TO THE UNIT AND CALL LIGHT. A/OX4. CALL LIGHT WITHIN REACH. WILL CONTINUE TO MONITOR AND PROVIDE CARE UNTIL HAND OFF
--- NOTE | 2021-01-20 21:27 | NUR ---
ASSUMED CARE OF PATIENT AT APPROXIMATELY 1910 FROM NORMAN Bartlett RN AND TOY Sanchez RN. PATIENT ALERT AND ORIENTED X4; ONE ASSIST OUT OF BED TO BATHROOM WITH FWW DUE TO "10 FALLS IN THE BATHROOM" SINCE HE WAS DISCHARGED IN THE PAST 30 DAYS. PATIENT REPORTS PAIN IN HIS HEAD, THE LEFT SIDE, THAT IS SO BAD AT HOME HE REPORTS HE TOLD HIS "IF YOU HEAR THE HANDGUN GO OFF AT HOME"; PATIENT DENIES FEELINGS OF HURTING SELF. SR 99 ON TELE; OXYGEN SATURATION ABOVE 90% ON ROOM AIR. PATIENT REPORTS HE USES CPAP AT HOME BUT BECAUSE HE LOST SO MUCH WEIGHT THE PRESSURES ARE TOO MUCH; DR. MOE CALLED AND RT SET UP CPAP. PATIENT ALSO REPORTS HE HAS TROUBLE SLEEPING AT TIME; REQUESTED SLEEP AID; DR. MOE ALSO NOTIFIED AND MELATONIN ORDER PLACED. USES URINAL IN BED; BED ALARM ON; BM AT START OF SHIFT. PATIENT REPORTS HE DRANK A WHOLE GALLON OF APPLE CIDER AT HOME BECAUSE HE THOUGHT HE WAS GETTING CONSTIPATED. IVF INFUSING PER ORDER.
--- NOTE | 2021-01-20 22:26 | NUR ---
PATIENT CALLED TO USE BATHROOM AND REPORTS MELATONIN NOT EFFECTIVE; REQUESTED ANOTHER SLEEP AID; CALL PLACED TO DR. MOE; WAITING CALL BACK.
[2021-01-21 04:10] LABS: BASOPHILS ABSOLUTE AUTO 0.03 K/mm3 (0.00-0.23); BASOPHILS PERCENT AUTO 0 % (0-2); EOSINOPHILS ABSOLUTE AUTO 0.06 K/mm3 (0.00-0.68); EOSINOPHILS PERCENT AUTO 1 % (0-6); Hematocrit 39.5 % (37.0-53.0); Hemoglobin 13.9 g/dL (13.5-17.5); IMMATURE GRAN ABSOLUTE AUTO 0.07 K/mm3 (0.00-0.10); IMMATURE GRAN PERCENT AUTO 1 % (0-1); LYMPHOCYTES ABSOLUTE AUTO 1.71 K/mm3 (0.84-5.20); LYMPHOCYTES PERCENT AUTO 19 % (21-46); MONOCYTES ABSOLUTE AUTO 0.83 K/mm3 (0.16-1.47); MONOCYTES PERCENT AUTO 9 % (4-13); Mean Corpuscular HGB 30.3 pg (26.0-34.0); Mean Corpuscular HGB Conc 35.2 g/dL (31.5-36.5); Mean Corpuscular Volume 86 fL (80-100); Mean Platelet Volume 9.6 fL (9.1-12.4); NEUTROPHILS PERCENT AUTO 70 % (41-73); Platelet Count 92 K/mm3 (150-400); RDW Coefficient Variation 14.2 % (11.7-14.2); RDW Standard Deviation 43.6 fL (35.1-46.3); Red Blood Cell Count 4.58 M/mm3 (4.30-5.90)
[2021-01-21 04:37] LABS: Alanine Aminotransfer (ALT/SGP 41 U/L (12-78); Albumin, Blood 2.2 g/dL (3.4-5.0); Albumin/Globulin Ratio 0.6 (0.8-1.8); Alk Phos 142 U/L (50-136); Anion Gap 3 mmol/L (6-16); Aspartate Aminotrans (AST/SGOT 17 U/L (12-37); Bilirubin, Total 1.1 mg/dL (0.1-1.0); Blood Urea Nitrogen 13 mg/dL (8-24); Bun/Creatinine Ratio 21.9 (12.0-20.0); CO2, Blood 29 mmol/L (21-32); Calcium, Blood 8.3 mg/dL (8.5-10.1); Chloride, Blood 103 mmol/L (98-108); Creatinine, Blood 0.59 mg/dL (0.60-1.20); Ferritin, Serum 1199 ng/mL (26-388); Glomerular Filtration Rate >60 (60-); Glucose, Blood 132 mg/dL (70-99); Lactate Dehydrogenase (Ld),Bld 200 U/L (100-240); Potassium, Blood 3.5 mmol/L (3.5-5.5); Sodium, Blood 135 mmol/L (136-145); Total Protein, Blood 6.2 g/dL (6.4-8.2)
--- NOTE | 2021-01-21 06:53 | NUR ---
PATIENT SLEPT ABOUT SIX HOURS; VSS. NO ACUTE CHANGES.
--- NOTE | 2021-01-21 10:14 | NUR ---
CARE ASSUMPTION THIS RN ASSUMED CARE FROM GRIS Amador RN. AT 0700. PATIENT IS A/OX4. VSS. TELE SINUS TACH. SPO2 >90% ON RA. PATIENT REPORTS PAIN IN LEFT SIDE OF HEAD AND RECEIVE PAIN MED PER EMAR. PATIENT AMBULATES TO THE BATHROOM INDEPENDENTLY JUST A SATAND BY ASSIST. CALL LIGHT WITHIN REACH. WILL CONTINUE TO MONITOR AND PROVIDE CARE.
--- NOTE | 2021-01-21 14:45 | NUR ---
TRANSFER TO MEDICAL FLOOR PT TRANSFER FROM PCU TO MEDICAL FLOOR. PT ARRIVED VIA W/C AND WAS ABLE TO TRANSFER IND TO BED. AT BEDSIDE. PT ORIENTED TO ROOM, CALL LIGHT SYSTEM AND BED CONTROLS. IVF RESARTED PRESRIBED AND PT RESTING COMFORTABLY, BED IN LOWEST POSITION AND CALL LIGHT WITHIN REACH.
--- NOTE | 2021-01-21 14:50 | NUR ---
PATIENT REPORT TO MED RN THIS RN GAVE REPORT TO MED FLOOR RN. PATIENT BELONGINGS GATHERED AND WENT UP TO ROOM VIA WHEELCHAIR. IS WITH THE PATIENT.
[2021-01-21 15:43] LABS: Vancomycin, Trough 15.6 ug/mL (5.0-10.0)
[2021-01-22 05:42] LABS: BASOPHILS ABSOLUTE AUTO 0.02 K/mm3 (0.00-0.23); BASOPHILS PERCENT AUTO 0 % (0-2); EOSINOPHILS ABSOLUTE AUTO 0.06 K/mm3 (0.00-0.68); EOSINOPHILS PERCENT AUTO 1 % (0-6); Hematocrit 39.8 % (37.0-53.0); Hemoglobin 13.7 g/dL (13.5-17.5); IMMATURE GRAN ABSOLUTE AUTO 0.07 K/mm3 (0.00-0.10); IMMATURE GRAN PERCENT AUTO 1 % (0-1); LYMPHOCYTES ABSOLUTE AUTO 1.53 K/mm3 (0.84-5.20); LYMPHOCYTES PERCENT AUTO 17 % (21-46); MONOCYTES ABSOLUTE AUTO 0.89 K/mm3 (0.16-1.47); MONOCYTES PERCENT AUTO 10 % (4-13); Mean Corpuscular HGB 30.6 pg (26.0-34.0); Mean Corpuscular HGB Conc 34.4 g/dL (31.5-36.5); Mean Corpuscular Volume 89 fL (80-100); Mean Platelet Volume 10.2 fL (9.1-12.4); NEUTROPHILS ABSOLUTE AUTO 6.31 K/mm3 (1.96-9.15); NEUTROPHILS PERCENT AUTO 71 % (41-73); Platelet Count 97 K/mm3 (150-400); RDW Coefficient Variation 14.6 % (11.7-14.2); RDW Standard Deviation 46.9 fL (35.1-46.3); Red Blood Cell Count 4.48 M/mm3 (4.30-5.90); White Blood Cell Count 8.88 K/mm3 (4.00-11.30)
--- NOTE | 2021-01-22 06:26 | NUR ---
PT VSS, HE COMPLAINED OF PAIN THROUGH THE NIGHT. IV PAIN MED ADMINISTERED. IV FLUIDS CURRENTLY RUNNING. PT ASKED TO HAVE HIS BG CHECK HE FELT BG WAS LOW. VISUAL MERCHANDISING SPECIALIST DID POC BG AND RESULT WAS 133. NO OTHER ISSUES IDENTIFIED. SAFETY MEASURES IN PLACE, CALL LIGHT IN REACH
[2021-01-22 06:32] LABS: Anion Gap 6 mmol/L (6-16); Blood Urea Nitrogen 15 mg/dL (8-24); Bun/Creatinine Ratio 17.1 (12.0-20.0); CO2, Blood 26 mmol/L (21-32); Calcium, Blood 8.4 mg/dL (8.5-10.1); Chloride, Blood 108 mmol/L (98-108); Creatinine, Blood 0.88 mg/dL (0.60-1.20); Glomerular Filtration Rate >60 (60-); Glucose, Blood 123 mg/dL (70-99); Potassium, Blood 3.6 mmol/L (3.5-5.5); Sodium, Blood 140 mmol/L (136-145)
--- NOTE | 2021-01-22 08:48 | NUR ---
UPDATE 01/21/21: 45 YOM ADMITTED WITH PROFOUND FATIGUE AND SOB. PT. WAS PREVIOUSLY ADMITTED 01/08/21 - 01/12/21 WITH DIAGNOSIS OF BACTERIAL SINUSITIS. PT. LIVES WITH HIS JUNIOR. STRONG FAMILY SUPPORT SYSTEM. DISCHARGE PLANNING LAST ADMIT INCLUDED: SCHEDULED APPOINTMENT WITH PCP ON 01/13, REFERRAL TO DR. KRUEGER (ENDOCRINOLOGY), AND OFFER TO ASSIST WITH RESOURCES. PT. WOULD BENEFIT FROM CASE MANAGEMENT. INSURANCE IS [facility] AND THAT IS A SERVICE AVAILABLE TO HIM. I WILL CONTACT BUCKET PUSHER AND REQUEST CLOSE FOLLOW-UP POST DISCHARGE. DISPOSITION UNKNOWN AT THIS TIME. ANTICIPATED NEEDS AT TIME OF DISCHARGE TO INCLUDE: A CASE MANAGEMENT, REFERRAL FOR PT, HOSPITAL F/U WITH PCP WITHIN 5-7 DAYS POST DISCHARGE.
--- NOTE | 2021-01-22 16:49 | NUR ---
SHIFT SUMMARY 45 Y MALE ADMITTED WITH SEPSIS. DR. 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 BC WITH NO GROWTH AT THIS POINT. PT STARTED ON STEROIDS TODAY AND PLANS TO D/C HOME IF BC SHOW NO GROWTH TOMORROW AND SYMPTOMS SEEM IMPOVED WIHT STEROID THERAPY. EDUCATIONAL MATERIAL PROVIDED TO PT TODAY. NO OTHER CHANGES THIS SHIFT.
--- NOTE | 2021-01-23 04:55 | NUR ---
PT HAS BEEN AWAKE FOR MOST OF THE NIGHT, SLEPT FOR TWO OURS. PT MAKES NO COMPLAINTS AT THIS TIME. REMAINS ALERT AND ORIENTED X4, IND IN ROOM AND MAKES NEEDS KNOWN. WILL CONT TO MONITOR.
[2021-01-23 08:17] LABS: Vancomycin, Trough 31.4 ug/mL (5.0-10.0)
--- NOTE | 2021-01-23 17:20 | NUR ---
NO ACUTE CHANGES. PT AOX4 AND INDEPENDENT IN ROOM. PT DENIES ANY PAIN AND IS COOPERATIVE OF CARE. PT USES CALL LIGHT APPROPRIATELY. NO DISTRESS NOTED WILL CONTINUE TO MONITOR.
--- NOTE | 2021-01-23 18:43 | NUR ---
PT HAS CONTINUED TO HAVE HIGH CBGs LAST ONE 373. DR MCCOLLUM NOTIFIED AND NO CHANGES REQUESTED. WILL CONTINUE TO MONITOR.
--- NOTE | 2021-01-24 04:56 | NUR ---
VSS. PT IS AOX4. NO COMPLAINTS OF PAIN.PT WANTED DOSE FOR TRAZADONE INCERASED.OK TO INCREASE PER MD ALY. NUMBNESS PRESENT ON LEFT SIDE OF FACE. SAFETY MEASURES IN PLACE.CALL LIGHT IN REACH
--- NOTE | 2021-01-24 05:00 | NUR ---
VSS , NO COMPLAINTS OF PAIN. SOB REPORTED WITH ACTIVITY.ORDER OBTAINED FOR DIET AND BLOOD GLUCOSE MONITORING. SAFETY MEASURES IN PLACE, CALL LIGHT IN REACH
[2021-01-24 06:38] LABS: Vancomycin, Random 14.8 ug/mL
[2021-01-24] MEDS ORDERED: AMOCLA875 PO (15:48)
--- NOTE | 2021-01-24 17:31 | NUR ---
PATIENT DISCHARGED TO HOME ACCOMPANIED BY . VERBALIZED UNDERSTANDING OF D/C INSTRUCTIONS. D/C MEDICATIONS FAXED TO [facility] CLOSED TODAY. IV SALINE LOCKS REMOVED WITHOUT INCIDENT. OFF UNIT AT 1638 VIA W/C. NO PERSONAL BELONGINGS LEFT BEHIND IN ROOM.
== END 2021-01-24 16:39 | disposition home or self-care (01) | DRG 872 ==
LOC: ER 11:04 → PCU 15:41 → MEDS 01-21 14:48
PROVIDERS: Pharmacist; Pharmacist Pharmacotherapy; Physician Assistant; ADMIT Hospitalist
DX: A41.01 Sepsis due to Methicillin susceptible Staphylococcus aureus (principal); B37.89 Other sites of candidiasis; D69.3 Immune thrombocytopenic purpura; F32.A Depression, unspecified; I10 Essential (primary) hypertension; K70.30 Alcoholic cirrhosis of liver without ascites; E78.5 Hyperlipidemia, unspecified; E11.51 Type 2 diabetes mellitus with diabetic peripheral angiopathy without gangrene; E66.01 Morbid (severe) obesity due to excess calories; G47.33 Obstructive sleep apnea (adult) (pediatric); J01.80 Other acute sinusitis; B96.89 Other specified bacterial agents as the cause of diseases classified elsewhere; Z86.16 Personal history of COVID-19; Z68.34 Body mass index [BMI] 34.0-34.9, adult; Z98.890 Other specified postprocedural states; Z91.040 Latex allergy status; Z91.013 Allergy to seafood; Z91.012 Allergy to eggs; Z88.8 Allergy status to other drugs, medicaments and biological substances; Z79.84 Long term (current) use of oral hypoglycemic drugs; Z79.899 Other long term (current) drug therapy
CPT/HCPCS: 36415; 70450; 70486; 71046; 80048; 80053; 80202; 82533; 82565; 82728; 82947; 83605; 83615; 83880; 84443; 84484; 85025; 85379; 85651; 86140; 87040; 87070; 93005; 93010; 93306; 94660; 94762; 96374; 97110; 97116; 97162; 97165; 97530; 99285-25; A9270; J1450; J1815; J2405; J2543; J2920; J3010; J3370; J7030; J7050

== ENCOUNTER 2021-07-01 22:59 | Inpatient (IN) | payer OTHER ==
[~2021-07-01] VITALS: Ht 190.5 cm; Wt 122.5 kg
[~2021-07-01 22:59] MED LIST changes: +AMOCLA875 PO
[2021-07-02 04:34] LABS: BASOPHILS ABSOLUTE AUTO 0.05 K/mm3 (0.00-0.23); BASOPHILS PERCENT AUTO 0 % (0-2); EOSINOPHILS ABSOLUTE AUTO 0.01 K/mm3 (0.00-0.68); EOSINOPHILS PERCENT AUTO 0 % (0-6); Hematocrit 34.2 % (37.0-53.0); IMMATURE GRAN PERCENT AUTO 1 % (0-1); LYMPHOCYTES ABSOLUTE AUTO 1.43 K/mm3 (0.84-5.20); LYMPHOCYTES PERCENT AUTO 9 % (21-46); MONOCYTES ABSOLUTE AUTO 1.95 K/mm3 (0.16-1.47); MONOCYTES PERCENT AUTO 12 % (4-13); Mean Corpuscular HGB 30.8 pg (26.0-34.0); Mean Corpuscular HGB Conc 35.1 g/dL (31.5-36.5); Mean Corpuscular Volume 88 fL (80-100); Mean Platelet Volume 11.5 fL (9.1-12.4); NEUTROPHILS ABSOLUTE AUTO 13.01 K/mm3 (1.96-9.15); NEUTROPHILS PERCENT AUTO 79 % (41-73); Platelet Count 132 K/mm3 (150-400); RDW Coefficient Variation 12.3 % (11.7-14.2); RDW Standard Deviation 39.7 fL (35.1-46.3); White Blood Cell Count 16.55 K/mm3 (4.00-11.30)
[2021-07-02 04:59] LABS: Alanine Aminotransfer (ALT/SGP 26 U/L (12-78); Albumin, Blood 3.2 g/dL (3.4-5.0); Albumin/Globulin Ratio 0.7 (0.8-1.8); Alk Phos 160 U/L (50-136); Anion Gap 9 mmol/L (6-16); Aspartate Aminotrans (AST/SGOT 14 U/L (12-37); Blood Urea Nitrogen 30 mg/dL (8-24); Bun/Creatinine Ratio 21.1 (12.0-20.0); CO2, Blood 26 mmol/L (21-32); Chloride, Blood 97 mmol/L (98-108); Creatinine, Blood 1.42 mg/dL (0.60-1.20); Globulin, Blood 4.6 g/dL (2.2-4.0); Glomerular Filtration Rate 54 (60-); Glucose, Blood 240 mg/dL (70-99); Potassium, Blood 4.2 mmol/L (3.5-5.5); Sodium, Blood 132 mmol/L (136-145); Total Protein, Blood 7.8 g/dL (6.4-8.2)
[2021-07-02 05:28] LABS: C-REACTIVE PROTEIN, EXT RANGE >19.000 mg/dL (0.000-0.300)
--- NOTE | 2021-07-02 12:01 | NUR ---
PT ARRIVED TO THE UNIT AT APPROXIMATELY 1145. PT IS ALERT AND ORIENTED. HE REPORTS PAIN IS MANAGED. WILL CONTINUE TO MONITOR
[2021-07-02] MEDS ORDERED: CEPH250A PO (12:03)
--- NOTE | 2021-07-02 18:15 | NUR ---
SHIFT SUMMARY PT ADMITTED TODAY FOR R 4TH TOE ULCER. PT IS HAVING SEROSANGUINOUS DRAINAGE FROM WOUNDS. NON-ADHERANT DRESSING PLACED BETWEEN PT'S TOES, 4X4 GAUZE APPLIED, KERLEX AND AZAM WRAP PLACED TO HOLD DRESSING IN PLACE. REDNESS TO PT'S R FOOT OUTLINED. PHOTOS TAKEN, UNABLE TO PRINT FROM CAMERA. PT IS GETTING IV ABX. PAIN MANAGED WITH TYLENOL. PT'S PEDAL AND TIBIAL PULSES ARE FAINT AND PALPABLE BUT ALSO LOCATED WITH DOPPLER AND LOCATION PULSES FOUND WERE MARKED. PT IS A 1 ASSIST WITH GAIT BELT AND WALKER WHEN OOB. HE IS UNSTEADY ON HIS FEET, HE REPORTS THIS IS BASELINE. PT IS TOLERATING PO, BUT REPORTS LACK OF INTEREST IN FOOD AT BASELINE. PT WAS EDUCATED BY DR. MCCOLLUM TO FOCUS ON EATING HIGH PROTEIN LOW CARB FOODS. PT'S BLOOD GLUCOSE HAS BEEN ELEVATED PT STARTED ON LOW SLIDING SCALE IN ADDITION TO HOME METFORMIN. PLAN FOR PT TO HAVE AN ARTERIAL DOPPLER SCAN TODAY OR TOMORROW.
[2021-07-02] MEDS ORDERED: TRAZ100 PO (20:57)
[2021-07-03 04:31] LABS: BASOPHILS ABSOLUTE AUTO 0.04 K/mm3 (0.00-0.23); BASOPHILS PERCENT AUTO 0 % (0-2); EOSINOPHILS ABSOLUTE AUTO 0.07 K/mm3 (0.00-0.68); EOSINOPHILS PERCENT AUTO 1 % (0-6); Hematocrit 29.8 % (37.0-53.0); Hemoglobin 10.4 g/dL (13.5-17.5); IMMATURE GRAN ABSOLUTE AUTO 0.07 K/mm3 (0.00-0.10); IMMATURE GRAN PERCENT AUTO 1 % (0-1); LYMPHOCYTES ABSOLUTE AUTO 1.17 K/mm3 (0.84-5.20); LYMPHOCYTES PERCENT AUTO 11 % (21-46); MONOCYTES ABSOLUTE AUTO 1.42 K/mm3 (0.16-1.47); MONOCYTES PERCENT AUTO 13 % (4-13); Mean Corpuscular HGB 30.3 pg (26.0-34.0); Mean Corpuscular HGB Conc 34.9 g/dL (31.5-36.5); Mean Corpuscular Volume 87 fL (80-100); Mean Platelet Volume 10.8 fL (9.1-12.4); NEUTROPHILS ABSOLUTE AUTO 8.08 K/mm3 (1.96-9.15); NEUTROPHILS PERCENT AUTO 75 % (41-73); Platelet Count 101 K/mm3 (150-400); RDW Standard Deviation 38.8 fL (35.1-46.3); Red Blood Cell Count 3.43 M/mm3 (4.30-5.90); White Blood Cell Count 10.85 K/mm3 (4.00-11.30)
[2021-07-03 04:55] LABS: Alanine Aminotransfer (ALT/SGP 22 U/L (12-78); Albumin, Blood 2.5 g/dL (3.4-5.0); Albumin/Globulin Ratio 0.6 (0.8-1.8); Alk Phos 150 U/L (50-136); Anion Gap 7 mmol/L (6-16); Aspartate Aminotrans (AST/SGOT 13 U/L (12-37); Bilirubin, Total 0.8 mg/dL (0.1-1.0); Blood Urea Nitrogen 26 mg/dL (8-24); Bun/Creatinine Ratio 24.1 (12.0-20.0); CO2, Blood 26 mmol/L (21-32); Calcium, Blood 8.3 mg/dL (8.5-10.1); Chloride, Blood 99 mmol/L (98-108); Creatinine, Blood 1.08 mg/dL (0.60-1.20); Globulin, Blood 3.9 g/dL (2.2-4.0); Glomerular Filtration Rate >60 (60-); Glucose, Blood 202 mg/dL (70-99); Magnesium, Blood 1.5 mg/dL (1.6-2.4); Sodium, Blood 132 mmol/L (136-145); Total Protein, Blood 6.4 g/dL (6.4-8.2)
--- NOTE | 2021-07-03 08:03 | NUR ---
PATIENT IS A&OX4, VSS, PATIENT IS COOPERATIVE AND JOVIAL, WAS PRESENT AND SUPPORTIVE IN THE AFTERNOON. PATIENT DEMONSTRATES UNSTEADY GAIT CAN TRANSFER WITH SUPERVISION. LCTAB, DRESSING ON RIGHT FOOT C/D&I, LEFT FOOT HAD SMALL SCABS ON TOES, PATIENT STATES THEY ARE FROM PRACTICING ON A DOJO MAT. SMALL BROWN SPOTS ARE PRESENT ON LOWER EXTREMITIES BILAT, PT STATES THEY ARE SCARS FROM OLD WOUNDS. PATIENT REPORTS ADEQUATE PAIN RELEIF WITH APAP. PATEINT NEEDS CPAP MACHINE WHILE SLEEPING. TEMPERATURE TRENDING UP WITH LAST READING 98.8. RBCS TRENDING DOWN. DOES NOT REPORT NAUSEA BUT STATED HE DOES NOT LIKE THE FOOD PROVIDED DURING MEALS, SUPPLEMENTED WITH NUTRITIONAL SHAKES AND CHEESE. USES CALL LIGHT APPROPRIATLY AND WAITS FOR ASSISTANCE WITH AMBULATION, ADVOCATES FOR HIS PAIN RELEIF. REPORT GIVEN TO DAYSHIFT, CALL LIGHT WITHIN REACH.
--- NOTE | 2021-07-03 13:00 | NUR ---
DRESSING ON R FOOT REMOVED, CLEANED WOUND W/ WOUND CLEANSER, SS FLUID DRAINING BETWEEN 3RD & 4TH TOE. NON ADHESIVE DRESSING & 4X4 GAUZE PLACED AROUND 4TH TOE, KERLEX & AZAM WRAP APPLIED.
--- NOTE | 2021-07-03 18:15 | NUR ---
SHIFT SUMMARY A&O X4, VSS ON RA. R FOOT ULCER TO 4TH TOE, CHANGED DRESSING TODAY PER PREVIOUS NOTE. PAIN MANAGED W/ TYLENOL PER EMAR. PATIENT RESTED IN BED MOST OF THE SHIFT W/ SBA TO BR A FEW TIMES. REPORTS FEELING TIRED AND NEEDING REST. IV ABX GIVEN PER EMAR, PLAN TO CONTINUE TO WATCH FOR IMPROVEMENT IN R FOOT W/ ABX. CALL LIGHT IN REACH, WILL REPORT TO ONCOMING RN.
--- NOTE | 2021-07-04 06:17 | NUR ---
PT WAS VISITED BY FAMILY DURING THE EVENING, PT APPEARED TO ENJOY THE COMPANY AND SEEMD TO ENJOT TALKING ABOUT HIS SONS SUCCESS IN EXTRACURRICULAR ACTIVITIES. PT IS A&OX4, VSS, COOPERATIVE WITH CARE. PT DEMONSTRATED A WEAK GAIT WHILE AMBULATING TO THE BATHROOM. DRESSING ON RIGHT FOOT CLEAN, DRY, AND INTACT. MEPILEX DRESSING ADDED TO PLANTER SURFACE OF R. FOOT IN RESPONSE TO DRY, FLAKY SKIN ON THE PLANTAR SURFACE. AQUACELL HEEL DRESSING ADDED TO L. FOOT AFTER LEFT HEEL WAS FOUND TO FEEL BOGGY. DISCUSSED INTERVENTIONS TO REDUCE THE RISK OF FALLS WHILE TRANSFERRING & AMBULATING. ADVISED PT TO CONTACT NURSE IF S/S OF ADVERSE REACTIONS TO ABX OCCUR. PT DEMONSTRATES SLIGHT INTENTION TREMORS IN HANDS, PT STATES THEY ARE A RESULT OF HIS DM2. PROVIDED NUTRITIONAL DRINK, USES CALL LIGHT APPROPRIATLY AND WAITS FOR ASSISTANCE TO AMBULATE. PT STATES HIS HEADACHE PAIN IS ADEQUATELY CONTROLLED WITH APAP. CALL LIGHT WITHIN REACH, PATIENT APPEARS TO STAY HYDRATED, WILL REPORT TO DAY SHIFT.
[2021-07-04 13:13] LABS: Vancomycin, Trough 18.9 ug/mL (5.0-10.0)
--- NOTE | 2021-07-04 13:17 | NUR ---
DR SANCHEZ AT BEDSIDE, CLEANED WOUND AND REMOVED SKIN W/ SCALPEL. CULTURES OBTAINES. RE-DRESSED WOUND W/ GAUZE, KERILEX & AZAM WRAP.
--- NOTE | 2021-07-04 17:45 | NUR ---
SHIFT SUMMARY VSS T/O SHIFT, NO ACUTE CHANEGS TODAY. WOUND TO RIGHT FOOT, 4TH TOE CLEANED AND DRESSING CHANGED THIS SHIFT. MRI DONE, DR SANCHEZ AWAITING RESULTS TO PROCEED W/ A PLAN, CONTINUE IV ABX AT THIS TIME. AMBULATING WELL WITHIN ROOM INDEPENDENTLY. POOR APPETITE BUT TOLERATING WELL, VOIDING WELL, BOWELS WNL FOR PATIENT. WILL REPORT TO ONCOMING RN.
--- NOTE | 2021-07-05 05:48 | NUR ---
PATIENT APPEARS TO BE RESTING COMFORTABLY IN LOW FOWLERS. A&OX4, VSS, WA PRESENT AND SUPPORTIVE IN THE EVENING. PT EXPRESSED CONCERN ABOUT HIS PENDING MRI RESULTS, INFORMED THE PT THAT THE RESULTS WERE UNREMARKABLE FOR OSTEOMYELITIS. PT EXPRESSED RELIEF, STATES HE DOES NOT WANT ASCENDING AMPUTATIONS D/T HIS SIMILAR FAMILY HISTORY. INDEPENDENT IN ROOM. HEADACHE PAIN CONTROLLED WITH ACETAMINOPHEN, DENIES PAIN IN RIGHT FOOT. PROVIDED EDUCATION ON TECHNIQUES TO FACILITATE HEALING. DRESSING TO RIGHT FOOT CLEAN DRY AND INTACT. IV TO RIGHT AC, TKO AT 15ML/HR. WILL REPORT TO DAY SHIFT, CALL LIGHT WITHIN REACH.
[2021-07-05 11:59] LABS: BASOPHILS ABSOLUTE AUTO 0.03 K/mm3 (0.00-0.23); BASOPHILS PERCENT AUTO 0 % (0-2); EOSINOPHILS ABSOLUTE AUTO 0.13 K/mm3 (0.00-0.68); EOSINOPHILS PERCENT AUTO 1 % (0-6); Hematocrit 30.3 % (37.0-53.0); Hemoglobin 10.7 g/dL (13.5-17.5); IMMATURE GRAN ABSOLUTE AUTO 0.14 K/mm3 (0.00-0.10); IMMATURE GRAN PERCENT AUTO 2 % (0-1); LYMPHOCYTES ABSOLUTE AUTO 1.04 K/mm3 (0.84-5.20); LYMPHOCYTES PERCENT AUTO 12 % (21-46); MONOCYTES ABSOLUTE AUTO 0.92 K/mm3 (0.16-1.47); MONOCYTES PERCENT AUTO 10 % (4-13); Mean Corpuscular HGB 30.9 pg (26.0-34.0); Mean Corpuscular HGB Conc 35.3 g/dL (31.5-36.5); Mean Corpuscular Volume 88 fL (80-100); NEUTROPHILS ABSOLUTE AUTO 6.82 K/mm3 (1.96-9.15); NEUTROPHILS PERCENT AUTO 75 % (41-73); Platelet Count 124 K/mm3 (150-400); RDW Coefficient Variation 11.9 % (11.7-14.2); RDW Standard Deviation 38.5 fL (35.1-46.3); Red Blood Cell Count 3.46 M/mm3 (4.30-5.90); White Blood Cell Count 9.08 K/mm3 (4.00-11.30)
--- NOTE | 2021-07-05 16:57 | NUR ---
SHIFT SUMMARY ALERT AND ORIENTED THROUGHOUT SHIFT. TOLERATING ADA DIET. BG CONTROLLED WITH METFORMIN AND INSULIN. DENIES PAIN TO RIGHT FOOT. COMPLAINS OF HEADACHE, MEDICATED PER EMAR. DRESSING TO RIGHT FOOT 4TH TOE CHANGED X2 THIS SHIFT. VASCULAR CONSULTED AND BELIEVE PATIENT HAS GOOD BLOOD FLOW TO FOOT. PLAN WILL BE MADE WITH DR SANCHEZ 07/06/21. RIGHT FOOT 4TH TOE PURPLE WITH RED DRAINAGE. PATIENT INDEPENDENT IN ROOM. TOOK SHOWER THIS SHIFT. WILL REPORT TO STATE ATTORNEY RN.
[2021-07-06 01:29] LABS: BASOPHILS ABSOLUTE AUTO 0.04 K/mm3 (0.00-0.23); BASOPHILS PERCENT AUTO 1 % (0-2); EOSINOPHILS ABSOLUTE AUTO 0.29 K/mm3 (0.00-0.68); EOSINOPHILS PERCENT AUTO 4 % (0-6); Hematocrit 29.5 % (37.0-53.0); Hemoglobin 10.6 g/dL (13.5-17.5); IMMATURE GRAN ABSOLUTE AUTO 0.23 K/mm3 (0.00-0.10); IMMATURE GRAN PERCENT AUTO 3 % (0-1); LYMPHOCYTES PERCENT AUTO 15 % (21-46); MONOCYTES ABSOLUTE AUTO 0.84 K/mm3 (0.16-1.47); MONOCYTES PERCENT AUTO 11 % (4-13); Mean Corpuscular HGB Conc 35.9 g/dL (31.5-36.5); Mean Corpuscular Volume 86 fL (80-100); Mean Platelet Volume 10.5 fL (9.1-12.4); NEUTROPHILS ABSOLUTE AUTO 5.32 K/mm3 (1.96-9.15); NEUTROPHILS PERCENT AUTO 67 % (41-73); Platelet Count 118 K/mm3 (150-400); RDW Coefficient Variation 11.9 % (11.7-14.2); RDW Standard Deviation 38.2 fL (35.1-46.3); Red Blood Cell Count 3.42 M/mm3 (4.30-5.90); White Blood Cell Count 7.92 K/mm3 (4.00-11.30)
[2021-07-06 01:51] LABS: Anion Gap 5 mmol/L (6-16); Blood Urea Nitrogen 19 mg/dL (8-24); Bun/Creatinine Ratio 17.9 (12.0-20.0); CO2, Blood 27 mmol/L (21-32); Calcium, Blood 8.4 mg/dL (8.5-10.1); Chloride, Blood 103 mmol/L (98-108); Creatinine, Blood 1.06 mg/dL (0.60-1.20); Glomerular Filtration Rate >60 (60-); Glucose, Blood 144 mg/dL (70-99); Potassium, Blood 4.1 mmol/L (3.5-5.5); Sodium, Blood 135 mmol/L (136-145)
[2021-07-06 01:55] LABS: Creatinine, Blood 1.04 mg/dL (0.60-1.20)
--- NOTE | 2021-07-06 05:54 | NUR ---
PT A&OX4, VSS REPORTED RELIEF WITH POSSIBILITY OF PREVENTING AMPUTATION OF 4TH R. TOE. REPORTS ADEQUATE PAIN CONTROL OF HEADACHE AFTER NEW ORDER OF IBUPROFEN. REPORTS FORMED BM, REPORTS SLEEPING BETTER. VANCOMYCIN TROUGH OUTSIDE NORMAL LIMIT, ORDER CHANGED TO Q18. LAB CULTURED MRSA FROM R. FOOT ABCESS, PLACED ON PRECAUTIONS. INFORMED PATIENT, EXPRESSED CONCERN ABOUT POSSIBLE AFFECT TO TREATMENT PLAN, PROVIDED REASSURANCE. IV IN R. AC, SALINE LOCKED. DRESSING TO R. FOOT CLEAN, DRY, AND INTACT. PATIENT APPEARS ASLEEP WITH CPAP, WILL CONTINUE TO MONITOR UNTIL REPORT GIVEN TO DAY SHIFT.
--- NOTE | 2021-07-06 14:30 | NUR ---
CALLED DR SANCHEZ REGARDING PATIENTS TREATMENT PLAN. DR SANCHEZ HAD SCHEDULED PATIENT TO HAVE TOE AMPUTATED TOMORROW, ALTHOUGH DR MCCOLLUM AND PATIENT DISCUSSED KEEPING THE TOE AT THIS TIME AND CONTINUING TO TREAT WITH ANTIBIOTCS. THIS INFORMATION HAS BEEN PASSED ON TO DR SANCHEZ IN PODIATRY, HE STATES HE WILL COME SEE THE PATIENT THIS AFTERNOON AROUND 1600 TO DISCUSS.
--- NOTE | 2021-07-06 16:57 | NUR ---
SHIFT SUMMARY VSS T/O SHIFT, CBG AC/HS, MINIMAL COVERAGE REQUIRED. PATEINT REPORTS PAIN TO BE 2-3/10 W/ THE ONLY PAIN BEING A HEADACHED AND IS TOELRABLE AT THIS TIME, NO PAIN MEDICATIONS. POOR APPETITE BUT TAKING IN PO FLUIDS WELL AND TOLERATING, NO N/V. CARINE N/T, SOB, CP. WOUND TO RIGHT FOOT 4TH TOE IS DARK RED W/YELLOW DRAINAGE. DRESSING CHANGED X1 TODAY, CLEANED W/ SKINTEGRITY & REDRESSED W/ GAUZE, KERLIX, & AZAM WRAP. PT UP TO BR AND IN ROOM INDEPENDENTLY. WILL REPORT TO ONCOMING RN.
--- NOTE | 2021-07-06 18:14 | NUR ---
DR SANCHEZ SUPERVISORY AIR INTERCEPT CONTROLLER IN TO SEE PATIENT ABOUT 171, STATED THAT THE R FOOT & TOE LOOK MUCH BETTER. PERFORMED AN I&D OF THE R FOOT, 4TH TOE AT BEDSIDE. PLACED GAUZE, KERILEX, & AZAM WRAP TO R FOOT A DRESSING, WOULD LIKE THE DRESSING CHANEGD EVERY SHOFT OR NEEDED. STATES THE PATIENT IS OKAY TO D/C HOME FROM HIS STANDPOINT, WOULD LIKE HIM TO GO HOME ON IV ABX.
[2021-07-07 01:45] LABS: Vancomycin, Trough 17.4 ug/mL (5.0-10.0)
--- NOTE | 2021-07-07 06:38 | NUR ---
PT VSS T/O NIGHT. DRESSING TO RIGHT FOOT CDI. CAP REFILL WNL, PT REP SENSATION AT BASELINE. PT MED FOR HEADACHE X1 W/REP RELIEF. PT NAWAF REG PO, NO C/O N/V, IS VOIDING W/O DIFFICULTY. PT AMB INDEP IN ROOM. ABX CONT PER ORDERS.
--- NOTE | 2021-07-07 08:22 | NUR ---
DRESSING CHANGE REMOVED THE DRESSING AND ALGINATE PACKING FROM WOUND AND I&D SITE. CLEANED W/ STERILE NORMAL SALINE & SKINTEGRITY WOUND CLEANSER. REPLACED ALGINATE PACKING AND COVERED W/ GAUZE, KERLIX, & AZAM WRAP.
[2021-07-07] MEDS ORDERED: SULTRIDS PO (09:30)
--- NOTE | 2021-07-07 14:54 | NUR ---
DISCHARGE VSS ON RA, CBG WELL CONTROLLED, EATING, DRINKING, & VOIDING WELL, HAVING BM'S WITHIN OWN NORMAL LIMIT. AMBULATING WIHTIN ROOM WELL. DRESSING TO RIGHT FOOT IS C/D/I. DISCUSSED DISCHARGE INSTRUCTIONS, SCRIPTS FAXED TO PHARMACY. ESCORTED OUT VIA W/C.
== END 2021-07-07 15:00 | disposition home or self-care (01) | DRG 872 ==
LOC: ER 22:59 → ERHOLD 07-02 07:58 → SURS 07-02 07:58
PROVIDERS: Emergency Medicine; Podiatrist Foot & Ankle Surgery; ADMIT Internal Medicine
PROC: 3E03329 Introduction of Other Anti-infective into Peripheral Vein, Percutaneous Approach (ICD-10-PCS; principal; 2021-07-02)
PROC: 0H9MXZZ Drainage of Right Foot Skin, External Approach (ICD-10-PCS; 2021-07-06)
DX: A41.02 Sepsis due to Methicillin resistant Staphylococcus aureus (principal); L03.115 Cellulitis of right lower limb; L02.611 Cutaneous abscess of right foot; N17.9 Acute kidney failure, unspecified; E11.52 Type 2 diabetes mellitus with diabetic peripheral angiopathy with gangrene; I96 Gangrene, not elsewhere classified; F32.A Depression, unspecified; G47.33 Obstructive sleep apnea (adult) (pediatric); E11.9 Type 2 diabetes mellitus without complications; E11.628 Type 2 diabetes mellitus with other skin complications; E11.65 Type 2 diabetes mellitus with hyperglycemia; D69.6 Thrombocytopenia, unspecified; R16.1 Splenomegaly, not elsewhere classified; Z88.8 Allergy status to other drugs, medicaments and biological substances; Z91.040 Latex allergy status; Z91.012 Allergy to eggs; Z91.018 Allergy to other foods; Z79.899 Other long term (current) drug therapy; K74.60 Unspecified cirrhosis of liver
CPT/HCPCS: 36415; 73620; 73718; 80048; 80053; 80202; 82565; 82947; 83605; 83735; 85025; 85651; 86140; 87070; 87075; 87077; 87147; 87186; 87205; 93922; 96365; 99285-25; A9270; J0692; J1650; J2543; J3370; J7050

== ENCOUNTER → 2021-08-03 | Outpatient (CLI) | payer OTHER ==
[~2021-08-03] MED LIST changes: +CEPH250A PO; +SULTRIDS PO; +TRAZ100 PO
== END | disposition home or self-care (01) ==
LOC: PLD 15:11 → LAB SHORT 15:11
DX: M86.171 Other acute osteomyelitis, right ankle and foot (principal); L03.031 Cellulitis of right toe; I96 Gangrene, not elsewhere classified
CPT/HCPCS: 88305; 88311

== ENCOUNTER → 2021-08-03 | Outpatient (CLI) | payer OTHER | END | disposition home or self-care (01) | LOC: LAB 15:15 → LAB SHORT 15:15 | DX: L08.9 Local infection of the skin and subcutaneous tissue, unspecified (principal); I96 Gangrene, not elsewhere classified; L97.513 Non-pressure chronic ulcer of other part of right foot with necrosis of muscle | CPT/HCPCS: 87070; 87071; 87075; 87077; 87186; 87205 ==

== ENCOUNTER → 2023-05-19 | Outpatient (CLI) | payer OTHER | END | disposition home or self-care (01) | LOC: LAB SHORT 01:40 | DX: K74.60 Unspecified cirrhosis of liver (principal) | CPT/HCPCS: 81050 ==

== ENCOUNTER 2023-09-29 18:34 | Emergency (ER) | payer OTHER ==
[~2023-09-29] VITALS: Ht 193 cm; Wt 154.2 kg
[2023-09-29 19:25] LABS: BASOPHILS ABSOLUTE AUTO 0.03 K/mm3 (0.00-0.23); BASOPHILS PERCENT AUTO 1 % (0-2); EOSINOPHILS PERCENT AUTO 3 % (0-6); Hemoglobin 18.3 g/dL (13.5-17.5); IMMATURE GRAN ABSOLUTE AUTO 0.02 K/mm3 (0.00-0.10); IMMATURE GRAN PERCENT AUTO 0 % (0-1); LYMPHOCYTES PERCENT AUTO 6 % (21-46); MONOCYTES ABSOLUTE AUTO 0.73 K/mm3 (0.16-1.47); MONOCYTES PERCENT AUTO 11 % (4-13); Mean Corpuscular HGB 30.4 pg (26.0-34.0); Mean Corpuscular HGB Conc 35.2 g/dL (31.5-36.5); Mean Corpuscular Volume 86 fL (80-100); NEUTROPHILS ABSOLUTE AUTO 5.04 K/mm3 (1.96-9.15); NEUTROPHILS PERCENT AUTO 79 % (41-73); Platelet Count 73 K/mm3 (150-400); RDW Coefficient Variation 13.1 % (11.7-14.2); RDW Standard Deviation 41.1 fL (35.1-46.3); Red Blood Cell Count 6.02 M/mm3 (4.30-5.90); White Blood Cell Count 6.42 K/mm3 (4.00-11.30)
[2023-09-29] MEDS ORDERED: CARVEDILOL12.5 MG PO (19:41)
[2023-09-29] MEDS ORDERED: DAPAGLIFLOZIN10 MG PO (19:42)
[2023-09-29] MEDS ORDERED: OMEP20ER PO (19:42)
[2023-09-29] MEDS ORDERED: TRAZ150T57 PO (19:43)
[2023-09-29] MEDS ORDERED: EPITOL200 M2 PO (19:43)
[2023-09-29 19:54] LABS: Albumin, Blood 4.2 g/dL (3.4-5.0); Bun/Creatinine Ratio 15.8 (12.0-20.0); Calcium, Blood 8.8 mg/dL (8.5-10.1); Creatinine, Blood 1.33 mg/dL (0.60-1.20); Potassium, Blood 4.5 mmol/L (3.5-5.5); Total Protein, Blood 8.2 g/dL (6.4-8.2)
[2023-09-29 20:18] LABS: Magnesium, Blood 1.9 mg/dL (1.6-2.4)
[2023-09-29] MEDS ORDERED: NS 1,000 ML IV SCH ×2 (20:25→22:25)
[2023-09-29] MEDS ORDERED: Acetaminophen 325 MG TABLET PO ONE (20:25)
[2023-09-29 21:22] LABS: Influenza A, PCR NEGATIVE (NEGATIVE); Influenza B, PCR NEGATIVE (NEGATIVE); Resp Syncytial Virus, PCR NEGATIVE (NEGATIVE); SARS-Cov-2 (COVID-19) PCR, MMC NEGATIVE (NEGATIVE)
[2023-09-29 21:38] LABS: Source, Urine Clean Catch
[2023-09-29 22:15] LABS: Bilirubin, Urine Neg (Neg); Blood, Urine 1+ (Neg); Glucose Qualitative, Urine 4+ (Neg); Ketones, Urine 1+ (Neg); Leukocyte Esterase, Urine Neg (Neg); Nitrite, Urine Neg (Neg); Protein, Urine 2+ (Neg); Urobilinogen, Urine NORM (Normal)
[2023-09-29 22:26] LABS: Appearance, Urine Clear (Clear); Color, Urine Yellow (P-Yellow)
[2023-09-29 22:28] LABS: Bacteria Few /hpf; Hyaline Casts 0-2 /lpf (0-2); Red Blood Cells, Urine 0-2 /hpf (0-2); Squamous Epithelial Cells Few /hpf (Few); White Blood Cells, Urine 0-2 /hpf (0-5)
[2023-09-29] MEDS ORDERED: Ketorolac Tromethamine 30mg Vial IV ONE (23:00)
[2023-09-30 01:15] VITALS: BP 127/69
== END 2023-09-30 01:18 | disposition home or self-care (01) ==
LOC: ER 18:34
PROVIDERS: Physician Assistant; Student in an Organized Health Care Education/Training Program
DX: E86.0 Dehydration (principal); R41.0 Disorientation, unspecified; Z91.012 Allergy to eggs; Z88.8 Allergy status to other drugs, medicaments and biological substances; Z91.040 Latex allergy status; Z91.013 Allergy to seafood; Z79.899 Other long term (current) drug therapy; Z79.84 Long term (current) use of oral hypoglycemic drugs; I10 Essential (primary) hypertension; E78.5 Hyperlipidemia, unspecified; M19.90 Unspecified osteoarthritis, unspecified site
CPT/HCPCS: 0241U; 70450; 74176; 80053; 81001; 82550; 83690; 83735; 84484; 85025; 93005; 93010; 96361; 96374; 99285-25; A9270; J1885; J7030

== ENCOUNTER → 2025-01-08 | Outpatient (CLI) | payer OTHER ==
[~2025-01-08] MED LIST changes: +CARB200 PO; +CARVEDILOL12.5 MG PO; +DAPAGLIFLOZIN10 MG PO; +EPITOL200 M2 PO; +KETO15TC TOP; +LOSA50 PO; +OMEP20ER PO; +Percocet 5-3251 EACH PO; +STEGLATRO15 MG PO; +TRAZ150T57 PO; +TRULICITY3 MG/0.5 M SC; +Tessalon200 MG PO
[2025-01-08 13:41] LABS: BASOPHILS ABSOLUTE AUTO 0.02 K/mm3 (0.00-0.23); BASOPHILS PERCENT AUTO 0 % (0-2); EOSINOPHILS ABSOLUTE AUTO 0.25 K/mm3 (0.00-0.68); EOSINOPHILS PERCENT AUTO 2 % (0-6); Hematocrit 45.1 % (37.0-53.0); Hemoglobin 16.0 g/dL (13.5-17.5); IMMATURE GRAN ABSOLUTE AUTO 0.07 K/mm3 (0.00-0.10); IMMATURE GRAN PERCENT AUTO 1 % (0-1); LYMPHOCYTES ABSOLUTE AUTO 0.70 K/mm3 (0.84-5.20); LYMPHOCYTES PERCENT AUTO 6 % (21-46); MONOCYTES ABSOLUTE AUTO 0.74 K/mm3 (0.16-1.47); MONOCYTES PERCENT AUTO 6 % (4-13); Mean Corpuscular HGB Conc 35.5 g/dL (31.5-36.5); Mean Corpuscular Volume 84 fL (80-100); NEUTROPHILS ABSOLUTE AUTO 10.48 K/mm3 (1.96-9.15); NEUTROPHILS PERCENT AUTO 86 % (41-73); NRBC ABSOLUTE 0.00 K/mm3 (0.00-0.02); NRBC Auto 0.0 /100 WBC (0.0-0.2); RDW Coefficient Variation 13.8 % (11.7-14.2); RDW Standard Deviation 41.4 fL (35.1-46.3)
[2025-01-08 13:52] LABS: Alanine Aminotransfer (ALT/SGP 39.0 U/L (12-78); Albumin, Blood 4.0 g/dL (3.4-5.0); Albumin/Globulin Ratio 1.0 (0.8-1.8); Anion Gap 15.0 mmol/L (3-11); Aspartate Aminotrans (AST/SGOT 28.0 U/L (12-37); Bilirubin, Total 1.1 mg/dL (0.1-1.0); Blood Urea Nitrogen 24.0 mg/dL (8-24); CO2, Blood 26.0 mmol/L (21-32); Calcium, Blood 8.8 mg/dL (8.5-10.1); Chloride, Blood 99.0 mmol/L (98-108); Creatinine, Blood 1.47 mg/dL (0.60-1.20); Globulin, Blood 3.9 g/dL (2.2-4.0); Glucose, Blood 268.0 mg/dL (70-99); Potassium, Blood 4.5 mmol/L (3.5-5.5); Sodium, Blood 135.0 mmol/L (136-145); Total Protein, Blood 7.9 g/dL (6.4-8.2)
[2025-01-08 14:08] LABS: Platelet Count 54 K/mm3 (150-400)
== END | disposition home or self-care (01) ==
LOC: LAB SHORT 13:36 → LAB 13:36
PROVIDERS: Chiropractor
DX: R10.9 Unspecified abdominal pain (principal)
CPT/HCPCS: 80053; 83690; 85025

== ENCOUNTER 2025-01-13 15:36 | Inpatient (IN) | payer OTHER ==
[~2025-01-13] VITALS: Ht 193 cm; Wt 154.1 kg
[~2025-01-13 15:36] MED LIST changes: -CARB200 PO; -KETO15TC TOP; -LOSA50 PO; -Percocet 5-3251 EACH PO; -STEGLATRO15 MG PO; -TRULICITY3 MG/0.5 M SC; -Tessalon200 MG PO
[2025-01-13 16:02] LABS: Hematocrit 46.3 % (37.0-53.0); Hemoglobin 16.2 g/dL (13.5-17.5); Mean Corpuscular HGB Conc 35.0 g/dL (31.5-36.5); Mean Corpuscular Volume 85 fL (80-100); NRBC ABSOLUTE 0.00 K/mm3 (0.00-0.02); NRBC Auto 0.0 /100 WBC (0.0-0.2); Platelet Count 180 K/mm3 (150-400); RDW Coefficient Variation 14.7 % (11.7-14.2); RDW Standard Deviation 45.0 fL (35.1-46.3)
[2025-01-13] MEDS ORDERED: CefTRIAXone Sodium 1,000 MG in NS 100 ML IV ONE (16:05)
[2025-01-13] MEDS ORDERED: NS 1,000 ML IV SCH (16:05)
[2025-01-13] MEDS ORDERED: Morphine Sulfate 4 MG/1 ML Injection IV ONE (16:10)
[2025-01-13 16:28] LABS: Anion Gap 11.0 mmol/L (3-11); Blood Urea Nitrogen 43.0 mg/dL (8-24); CO2, Blood 24.0 mmol/L (21-32); Calcium, Blood 8.1 mg/dL (8.5-10.1); Chloride, Blood 100.0 mmol/L (98-108); Creatinine, Blood 2.19 mg/dL (0.60-1.20); Glucose, Blood 175.0 mg/dL (70-99); Potassium, Blood 3.8 mmol/L (3.5-5.5); Sodium, Blood 131.0 mmol/L (136-145)
[2025-01-13 16:41] LABS: BAND PERCENT MAN 7 % (0-8); BASOPHILS ABSOLUTE MAN 0.26 K/mm3 (0.00-0.23); BASOPHILS PERCENT MAN 1 % (0-2); EOSINOPHILS ABSOLUTE MAN 3.43 K/mm3 (0.00-0.68); EOSINOPHILS PERCENT MAN 13 % (0-6); LYMPHOCYTES ABSOLUTE MAN 1.85 K/mm3 (0.84-5.20); LYMPHOCYTES PERCENT MAN 7 % (21-46); MONOCYTES ABSOLUTE MAN 2.90 K/mm3 (0.16-1.47); MONOCYTES PERCENT MAN 11 % (4-13); NEUTROPHILS ABSOLUTE MAN 17.97 K/mm3 (1.96-9.15); SEG NEUTROPHILS PERCENT MAN 61 % (41-73)
[2025-01-13 16:58] LABS: Influenza A, PCR NEGATIVE (NEGATIVE); Influenza B, PCR NEGATIVE (NEGATIVE); Resp Syncytial Virus, PCR NEGATIVE (NEGATIVE); SARS-Cov-2 (COVID-19) PCR, MMC NEGATIVE (NEGATIVE)
[2025-01-13 17:10] LABS: Anti-Xa UFH, PHA Monitoring <0.10 IU/mL; Prothrombin Time Results 16.7 Sec (9.7-11.5)
[2025-01-13] MEDS ORDERED: Ondansetron HCl 2 MG / ML 2ML Vial IV PRN (17:15)
[2025-01-13] MEDS ORDERED: FLU VACC TS2025-26(6MOS UP)/PF 45 MCG/0.5 ML SYRINGE IM SCH (17:15)
[2025-01-13] MEDS ORDERED: Heparin Sodium,Porcine/0.5 NS 500 ML IV SCH (17:25)
[2025-01-13] MEDS ORDERED: Heparin Sodium 5000 Units/ML 1ML MDV IV ONE (17:25)
[2025-01-13] MEDS ORDERED: FentaNYL Citrate 50 MCG/ML 2 ML Injection IV PRN (17:55)
[2025-01-13] MEDS ORDERED: Piperacillin/Tazobactam Sod 3.375 GM in NS 100 ML IV SCH (18:00)
[2025-01-13 18:53] VITALS: BP 113/82
[2025-01-13 19:43] LABS: pH Blood Venous 7.28 (7.34-7.37)
[2025-01-13 19:56] VITALS: BP 84/61
[2025-01-13 20:01] VITALS: BP 71/61
[2025-01-13 20:18] VITALS: BP 90/71
[2025-01-13] MEDS ORDERED: Lactobacil 2-S.Thermo-Bifido 1 1 Cap PO SCH (21:00)
[2025-01-13] MEDS ORDERED: Percocet 5-3251 EACH PO (21:41)
[2025-01-13] MEDS ORDERED: Tessalon200 MG PO (21:43)
[2025-01-13] MEDS ORDERED: CARB200 PO (21:46)
[2025-01-13] MEDS ORDERED: KETO15TC TOP (21:51)
[2025-01-13] MEDS ORDERED: LOSA50 PO (21:52)
[2025-01-13] MEDS ORDERED: STEGLATRO15 MG PO (21:55)
[2025-01-13] MEDS ORDERED: TRULICITY3 MG/0.5 M SC (21:57)
[2025-01-13 22:00] VITALS: BP 101/77
[2025-01-13 23:22] VITALS: BP 116/82
[2025-01-14] VITALS (7 sets, daily range): BP systolic 112–143; BP diastolic 62–96
[2025-01-14 02:13] LABS: Hematocrit 43.4 % (37.0-53.0); Hemoglobin 15.2 g/dL (13.5-17.5); Mean Corpuscular HGB Conc 35.0 g/dL (31.5-36.5); Mean Corpuscular Volume 84 fL (80-100); NRBC ABSOLUTE 0.00 K/mm3 (0.00-0.02); NRBC Auto 0.0 /100 WBC (0.0-0.2); Platelet Count 174 K/mm3 (150-400); RDW Coefficient Variation 14.8 % (11.7-14.2); RDW Standard Deviation 45.1 fL (35.1-46.3)
[2025-01-14 02:31] LABS: Anion Gap 15.0 mmol/L (3-11); Blood Urea Nitrogen 48.0 mg/dL (8-24); CO2, Blood 21.0 mmol/L (21-32); Calcium, Blood 7.8 mg/dL (8.5-10.1); Chloride, Blood 98.0 mmol/L (98-108); Creatinine, Blood 2.1 mg/dL (0.60-1.20); Glucose, Blood 214.0 mg/dL (70-99); Potassium, Blood 4.1 mmol/L (3.5-5.5); Sodium, Blood 130.0 mmol/L (136-145)
[2025-01-14 02:33] LABS: BAND PERCENT MAN 7 % (0-8); BASOPHILS ABSOLUTE MAN 0.27 K/mm3 (0.00-0.23); BASOPHILS PERCENT MAN 1 % (0-2); EOSINOPHILS ABSOLUTE MAN 4.75 K/mm3 (0.00-0.68); EOSINOPHILS PERCENT MAN 17 % (0-6); LYMPHOCYTES ABSOLUTE MAN 1.67 K/mm3 (0.84-5.20); LYMPHOCYTES PERCENT MAN 6 % (21-46); METAMYELOCYTE ABSOLUTE MAN 0.27 K/mm3 (0.00-0.00); METAMYELOCYTE PERCENT MAN 1 % (0-0); MONOCYTES ABSOLUTE MAN 1.67 K/mm3 (0.16-1.47); MONOCYTES PERCENT MAN 6 % (4-13); NEUTROPHILS ABSOLUTE MAN 19.29 K/mm3 (1.96-9.15); SEG NEUTROPHILS PERCENT MAN 62 % (41-73)
[2025-01-14] MEDS ORDERED: Dose Adjust by Pharmacy XX STA ×3 (02:35→17:07)
[2025-01-14] MEDS ORDERED: Heparin Sodium 5000 Units/ML 1ML MDV IV ONE ×2 (02:40→09:45)
--- NOTE | 2025-01-14 06:10 | NUR ---
SHIFT SUMMARY PT IS A&O X4, ABLE TO MAKE NEEDS KNOWN, MOVING ALL EXTREMITIES WITH PURPOSE, OBEYS COMMANDS, CALLS APPROPRIATELY, REPOSITIONING SELF IN RECLINER. CONTINUOUS SPO2, SPO2 GREATER THAN 92% ON 2L O2 VIA NC OR CPAP WITH 2L O2 WHILE SLEEPING, PT REPORTING SOB WHILE AT REST AND STATES HE FEELS LIKE HE CANNOT BREATH WHILE LAYING DOWN. CONTINUOUS TELE MONITORING, SINUS 100-110 S, PULSES PRESENT T/O, BP STABLE WITH MAP GREATER THAN 65, PT DENIES CHEST P/P T/O THIS SHIFT, HEPARIN INFUSING PER ORDERS. BOWEL TONES PRESENT IN ALL 4Q, PT DENIES FEELINGS OF NAUSEA OR CONSTIPATION. VOIDING IND, URINE YELLOW IN COLOR. BED LOWEST POSITION, CALL LIGHT IN REACH, AWAITING TO GIVE REPORT TO ONCOMING RN.
[2025-01-14] MEDS ORDERED: Insulin Regular 100 UNIT/ML 10ML Vial SC SCH (07:30)
[2025-01-14] MEDS ORDERED: Darbepoetin (Pharmacy Consult) SC SCH (11:30)
[2025-01-14] MEDS ORDERED: NS 1,000 ML IV SCH (11:40)
[2025-01-14 12:49] LABS: pH Blood Venous 7.32 (7.34-7.37)
[2025-01-14] MEDS ORDERED: Piperacillin/Tazobactam Sod 3.375 GM in NS 100 ML IV SCH (16:00)
--- NOTE | 2025-01-14 17:35 | NUR ---
SHIFT SUMMARY PT AWAKE IN CHAIR AT TIME OF BEDSIDE REPORT W/ NOC RN. PT A/OX4, ABLE TO MOVE ALL EXTREMITIES SPONTANEOUSLY, TURNS SELF, AND CALLS APPROPIATELY. PT REPORTS 6/10 PAIN IN LOWER ABD AND HEAD. PT MEDICATED PER MAY AND REPORTS TOLERABLE PAIN RELIEF. PT IS SBA FOR CORD MANAGEMENT, BUT OTHERWISE AMBULATORY. NSR ON MONITOR, MAPS>65, CAP REFILL< 3 SEC, AND TRACE EDEMA IN BLE. PT DENIES CP/NUMBNESS/TINGLING. ECHO COMPLETED AT BEDSIDE, PT TOLERATD WELL. SATURATING >95% ON 2 LPM NC, BREATHS TACHYPNEIC W/ EXERTION, EVEN AND UNLABORED AT REST. LUNG SOUNDS DIM W/ EXPIRATORY WHEEZE IN LOWER LOBES. PT CONTINENT OF BOWEL AND BLADDER. STRICT I/O'S IN PLACE, PT AWARE AND UNDERSTANDS INSTRUCTIONS TO ALERT STAFF BEFORE FLUSHING. PT TOLERATED MEALS WELL, ABD MILDY DISTENDED AND TENDER NEAR SURGICAL SITE. PT REPORT THIS NORMAL POST-OP. LOWER ABD ECCHYMOTIC W/ SURGICAL SITE NEAR UMBILICUS, SITE WELL APPROXIMATED. SCATTERED BRUISING/SCABS ON BLE, PT STATES THIS IS BASELINE. OTHERWISE, SKIN INTACT AND W/O BREAKDOWN. LUNG PERFUSION PERFORMED W/ NUC MED THIS AM, PT REQUIRED INCREASED O2 DURING SUPINE POSITIONING BUT TOLERATED WELL. HEPARIN AT 17 UNITS/KG/HR AT START OF SHIFT, PHARMACY INCREASED DOSE AND ORDERED BOLUS. ACCESS: RFA PIV, RAC PIV GTTS: NS 75ML/HR, HEPARIN 19 UNITS/KG/HR
[2025-01-14] MEDS ORDERED: Albuterol 2.5 MG/3 ML VIAL INH PRN (19:10)
[2025-01-15 03:09] VITALS: BP 109/88
[2025-01-15 03:28] LABS: BASOPHILS ABSOLUTE AUTO 0.13 K/mm3 (0.00-0.23); BASOPHILS PERCENT AUTO 1 % (0-2); EOSINOPHILS ABSOLUTE AUTO 6.70 K/mm3 (0.00-0.68); EOSINOPHILS PERCENT AUTO 26 % (0-6); Hematocrit 41.5 % (37.0-53.0); Hemoglobin 14.5 g/dL (13.5-17.5); IMMATURE GRAN ABSOLUTE AUTO 0.70 K/mm3 (0.00-0.10); IMMATURE GRAN PERCENT AUTO 3 % (0-1); LYMPHOCYTES ABSOLUTE AUTO 2.31 K/mm3 (0.84-5.20); LYMPHOCYTES PERCENT AUTO 9 % (21-46); MONOCYTES ABSOLUTE AUTO 1.74 K/mm3 (0.16-1.47); MONOCYTES PERCENT AUTO 7 % (4-13); Mean Corpuscular HGB Conc 34.9 g/dL (31.5-36.5); Mean Corpuscular Volume 84 fL (80-100); NEUTROPHILS ABSOLUTE AUTO 14.00 K/mm3 (1.96-9.15); NEUTROPHILS PERCENT AUTO 55 % (41-73); NRBC ABSOLUTE 0.00 K/mm3 (0.00-0.02); NRBC Auto 0.0 /100 WBC (0.0-0.2); Platelet Count 151 K/mm3 (150-400); RDW Coefficient Variation 14.8 % (11.7-14.2); RDW Standard Deviation 44.8 fL (35.1-46.3)
[2025-01-15 03:52] LABS: Alanine Aminotransfer (ALT/SGP 25 U/L (12-78); Albumin, Blood 2.8 g/dL (3.4-5.0); Albumin/Globulin Ratio 0.7 (0.8-1.8); Anion Gap 11 mmol/L (3-11); Aspartate Aminotrans (AST/SGOT 17 U/L (12-37); Bilirubin, Total 0.8 mg/dL (0.1-1.0); Blood Urea Nitrogen 46 mg/dL (8-24); CHOL/HDL RATIO 6.7; CO2, Blood 23 mmol/L (21-32); Calcium, Blood 7.7 mg/dL (8.5-10.1); Chloride, Blood 97 mmol/L (98-108); Cholesterol 107 mg/dL (50-200); Creatinine, Blood 1.85 mg/dL (0.60-1.20); Globulin, Blood 3.9 g/dL (2.2-4.0); Glucose, Blood 195 mg/dL (70-99); HDL Cholesterol 16 mg/dL (>39); LDL/HDL RATIO 3.5; Low Density Lipoprotein Chol 55 mg/dL (0-110); Magnesium, Blood 2.1 mg/dL (1.6-2.4); Phosphorus, Blood 3.1 mg/dL (2.5-4.9); Potassium, Blood 4.0 mmol/L (3.5-5.5); Sodium, Blood 127 mmol/L (136-145); Thyroid Stimulating Hormone 1.560 uIU/mL (0.360-4.800); Total Protein, Blood 6.7 g/dL (6.4-8.2); Triglycerides 178 mg/dL (30-160); Uric Acid, Blood 5.4 mg/dL (3.5-7.2); Very Low Density Lipoprot Chol 35 mg/dL (6-32)
--- NOTE | 2025-01-15 06:33 | NUR ---
SHIFT SUMMARY PT IS A&O X4, ABLE TO MAKE NEEDS KNOWN, MOVING ALL EXTREMITIES WITH PURPOSE, OBEYS COMMANDS, REPOSITIONING SELF IN BED, SBA FOR CORD MANAGEMENT, CALLS APPROPRIATELY. CONTINUOUS SPO2, SPO2 GREATER THAN 92% ON 2L O2 VIA NC/ OCCASIONALLY NEEDING TO BE TURNED TO 4L O2 VIA NC WITH ACTIVITY, CPAP WITH 2L O2 WHILE SLEEPING, LUNGS SOUND IMPROVED FROM THIS RN S PREVIOUS SHIFT. CONTINUOUS TELE MONITORING, SINUS 90-100 S, PULSES PRESENT T/O, BP STABLE WITH MAP GREATER THAN 65, PT DENIES CHEST P/P T/O THIS SHIFT. BOWEL TONES PRESENT IN ALL 4Q, PT DENIES FEELINGS OF NAUSEA OR CONSTIPATION, ABD MORE FIRM COMPARED TO PREVIOUS SHIFT/ PT HAD DM THIS SHIFT. VOIDING IND, URINE YELLOW IN COLOR. BED LOWEST POSITION, CALL LIGHT IN REACH, AWAITING TO GIVE REPORT TO ONCOMING RN.
[2025-01-15 07:38] VITALS: BP 108/56
[2025-01-15] MEDS ORDERED: Bumetanide 0.25 MG/ML 10ML Vial IV ONE (08:35)
[2025-01-15 11:32] VITALS: BP 133/91
[2025-01-15 16:06] VITALS: BP 98/66
--- NOTE | 2025-01-15 18:21 | NUR ---
SHIFT SUMMARY; ASSUMED CARE AT 0700. A/A/X4, 3L VIA NC WHILE AWAKE AND CPAP WITH 3L BLEED IN WHILE SLEEPING. AMBULATES TO BATHROOM INDEPENDANTLY, REPOSITIONS SELF NEEDED. 1500ML FLUID RESTRICTION WITH 500ML FREE WATER RESTRICTION ADDED TONIGHT BY DR. PATTON. STATUS CHANGED TO MEDICAL, VSS, WILL CONTINUE TO MONITOR AND TREAT UNTIL REPORT GIVEN TO SATELLITE TV INSTALLER RN.
[2025-01-15 20:46] VITALS: BP 101/70
[2025-01-15 23:46] VITALS: BP 122/86
[2025-01-16 02:53] VITALS: BP 120/77
--- NOTE | 2025-01-16 03:51 | NUR ---
PATIENT WAS TRANSFER VIA BED TO [facility] FROM PCU 14. AWAKE AND COUGHING INTERMITANTLY. PULSE OX SET UP. TELE SR 'S.
[2025-01-16 05:08] LABS: BASOPHILS ABSOLUTE AUTO 0.07 K/mm3 (0.00-0.23); BASOPHILS PERCENT AUTO 0 % (0-2); EOSINOPHILS ABSOLUTE AUTO 8.31 K/mm3 (0.00-0.68); EOSINOPHILS PERCENT AUTO 34 % (0-6); Hematocrit 40.4 % (37.0-53.0); Hemoglobin 14.5 g/dL (13.5-17.5); IMMATURE GRAN ABSOLUTE AUTO 0.93 K/mm3 (0.00-0.10); IMMATURE GRAN PERCENT AUTO 4 % (0-1); LYMPHOCYTES ABSOLUTE AUTO 2.26 K/mm3 (0.84-5.20); LYMPHOCYTES PERCENT AUTO 9 % (21-46); MONOCYTES ABSOLUTE AUTO 1.53 K/mm3 (0.16-1.47); MONOCYTES PERCENT AUTO 6 % (4-13); Mean Corpuscular HGB Conc 35.9 g/dL (31.5-36.5); Mean Corpuscular Volume 84 fL (80-100); NEUTROPHILS ABSOLUTE AUTO 11.21 K/mm3 (1.96-9.15); NEUTROPHILS PERCENT AUTO 46 % (41-73); NRBC ABSOLUTE 0.00 K/mm3 (0.00-0.02); NRBC Auto 0.0 /100 WBC (0.0-0.2); RDW Coefficient Variation 15.3 % (11.7-14.2); RDW Standard Deviation 44.7 fL (35.1-46.3)
--- NOTE | 2025-01-16 05:36 | NUR ---
SHIFT SUMMARY; HAS BEEN AWAKE MOST OF THE NIGHT, ACTIVE IN ROOM. TELE SR 98. HAS HARSH COUGH FREQUENTLY OWN CPAP WITH 3L BLEED-IN. SATS W/S, 92-93%
[2025-01-16 06:48] LABS: Alanine Aminotransfer (ALT/SGP 28.0 U/L (12-78); Albumin, Blood 2.8 g/dL (3.4-5.0); Albumin/Globulin Ratio 0.7 (0.8-1.8); Anion Gap 12.0 mmol/L (3-11); Aspartate Aminotrans (AST/SGOT 24.0 U/L (12-37); Bilirubin, Total 0.8 mg/dL (0.1-1.0); Blood Urea Nitrogen 45.0 mg/dL (8-24); CO2, Blood 22.0 mmol/L (21-32); Calcium, Blood 8.0 mg/dL (8.5-10.1); Chloride, Blood 100.0 mmol/L (98-108); Creatinine, Blood 1.85 mg/dL (0.60-1.20); Globulin, Blood 4.0 g/dL (2.2-4.0); Glucose, Blood 178.0 mg/dL (70-99); Magnesium, Blood 2.3 mg/dL (1.6-2.4); Phosphorus, Blood 2.5 mg/dL (2.5-4.9); Potassium, Blood 3.7 mmol/L (3.5-5.5); Sodium, Blood 130.0 mmol/L (136-145); Total Protein, Blood 6.8 g/dL (6.4-8.2)
[2025-01-16 07:52] VITALS: BP 127/76
[2025-01-16] MEDS ORDERED: NS 250 ML IV PRN (08:10)
[2025-01-16] MEDS ORDERED: DiphenhydrAMINE HCl 50 MG/ML 1ML Vial IV ONE (08:50)
--- NOTE | 2025-01-16 10:10 | NUR ---
AFTER PT ATE BREAKFAST HE STARTED TO BECOME INCREASINGLY SOB AND STATED HE FELT LIKE HIS TONGUE WAS SWELLING. DR. PATTON WAS NOTIFIED AND ORDERED 25 MG IV BENADDRYL X1. PT SPEECH BECAME GARBLED, AFTER IV BENADRYL BREATHING SLOWED AND SPEECH STARTED TO CLEAR UP. PT NOW SLIGHTLY DROWSY.
[2025-01-16 11:24] VITALS: BP 118/91
--- NOTE | 2025-01-16 11:29 | NUR ---
PT HAVING A HARSH HACKING COUGHIN FIT, UNABLE TO CATCH BREATH. DESATTING TO MID 80'S WITH THE 4L NC. PLACED ON OXIMASK AT 15 L AND PT IS BARELY SATTING 90-91%. NOTIIFED DR. PATTON WHO ORDEREDA STAT CHEST X-RAY AND STAT VBG. NOTIFIED RT IF THEY COULD COME ASSESS PT AND GIVE A BREATHING TREATMENT. DR. PATTON STATED HE WOULD BE BY SOON TO ASSESS PT HIMSELF. PT IS STILL SOB ON THE 15 L MASK BUT UPON AUSCULTATING PT IS MOVING AIR IN ALL LOBES. BREATHING HAS BECOME SLIGHTLY BETTER BUT PT IS CONTINUING TO HAVE COUGH WHICH IS NOT LETTING HIM RECOVER
[2025-01-16 11:43] LABS: pH Blood Venous 7.41 (7.34-7.37)
[2025-01-16] MEDS ORDERED: DiphenhydrAMINE HCl 50 MG/ML 1ML Vial IV PRN (12:40)
[2025-01-16 14:36] VITALS: BP 125/90
--- NOTE | 2025-01-16 19:27 | NUR ---
SUMMARY PT HAD ANAPHYLACTIC REACTION TO ORANGEST THIS AM. IV BENADRYL WAS ORDERED PER DR. PATTON WHICH RESOLVED INITIAL SYMPTOMS. HOWEVER PT CONTINUES TO HAVE A HARSH/HACKING COUGH THAT DID NOT RESOLVE AND HAD PT SATTING IN MID 80'S. PT STARTED MY SHIFT ON 3L NC WHEN PT WAS HAVING COUGH PLACED ON 15 L OXIMASK HE WAS BREATHING THROUGH HIS MOUTH. ALVIN PATTON ROUNDED ON PT AFTER INITAL ALLERGY REACTION AND COUGHING FIT. ORDERED ANOTEHR IV BENADRYL DOSE AND IV HYDROCORTISONE PT REPORTED STILL FEELING ITCHY TO THROAT AND EARS. RT ADMINISTERED TWO BREATHING TREATMENTS TODAY, THE FIRST SEEMED TO REALLY HELP RESOLVE PT INITAIL SOB/COUGH. PT TOOK A NAP TODAY WITH CPAP ON WITH 5L BLEED IN TO MAINTAIN SATS GREATER THAN 90%. WHEN PT AWAKE HE WAS PLACED BACK ON 4L HIGH FLOW NASAL CANNULA. PT GETTING UP SBA TO BATHROOM. MEASURING INTAKE AND OUTPUT. BLADDER SCAN COMPLETED THSI AM PER DR. PATTON AND LESS THAN 200. PT URINATED AFTER BLADDER SCAN. PT HAVING LOOSE LIQUID BOWEL MOVEMENTS, NOT MALODORUS, APPEARS BILE LIKE. PT HAS LARGE DIFFUSE BRUISING TO ABD FROM RECENT UMBILICAL HERNIA REPAIR SURGERY. MG VISUALIZED AT BEDSIDE. EDUCATED PT ON SPLINTING ABD WITH COUGH. PT CALLING APPROPRIATELY.
[2025-01-16 20:00] VITALS: BP 127/83
[2025-01-17] MEDS ORDERED: Cefepime HCl 2,000 MG in NS 100 ML IV SCH (00:31)
[2025-01-17] MEDS ORDERED: Insulin Glargine-Yfgn 100 Unit/mL 3 ML SYR SC SCH (01:00)
[2025-01-17] MEDS ORDERED: MetFORMIN HCl 500 mg PO SCH (01:00)
[2025-01-17] MEDS ORDERED: Insulin Glargine 100 Unit/ML 3 ML SYR SC SCH (01:58)
[2025-01-17 03:04] VITALS: BP 115/60
[2025-01-17 05:45] LABS: Hematocrit 37.6 % (37.0-53.0); Hemoglobin 13.1 g/dL (13.5-17.5)
[2025-01-17 06:05] LABS: Albumin, Blood 2.5 g/dL (3.4-5.0); Anion Gap 8 mmol/L (3-11); Blood Urea Nitrogen 40 mg/dL (8-24); CO2, Blood 26 mmol/L (21-32); Calcium, Blood 7.7 mg/dL (8.5-10.1); Chloride, Blood 103 mmol/L (98-108); Creatinine, Blood 1.99 mg/dL (0.60-1.20); Glucose, Blood 163 mg/dL (70-99); Magnesium, Blood 2.1 mg/dL (1.6-2.4); Phosphorus, Blood 2.4 mg/dL (2.5-4.9); Potassium, Blood 3.4 mmol/L (3.5-5.5); Sodium, Blood 134 mmol/L (136-145)
[2025-01-17] MEDS ORDERED: Potassium Phosphate Dibasic 10 MM in Dextrose 5% 250 ML IV STA (07:02)
[2025-01-17] MEDS ORDERED: Insulin Human Lispro 100 Units/ML 3ML Syringe SC SCH (07:30)
[2025-01-17 07:39] VITALS: BP 126/73
--- NOTE | 2025-01-17 07:44 | NUR ---
SHIFT SUMMARY A/Ox4, O2 NEEDS INCREASED OVERNIGHT BY CPAP AND NC, OTHER VSS. CONTINUOUS PULSE OX IN PLACE; SPO2 >90% ON 8L FOR MOST OF SHIFT, REQUIRED 12-15L STARTING AROUND 0600; STRONG. HACKING COUGH CONTINUES. CURRENTLY ON 15L, RT CONSULTED. PT REPORTS HEAD/NECK/BACK PAIN, PRN OXY EFFECTIVE. REPORTS MILD GENERALIZED ITCHING, PRN BENADRYL EFFECTIVE. UP TO RESTROOM WITH SBA.
[2025-01-17] MEDS ORDERED: Albuterol 2.5 MG/3 ML VIAL INH SCH (07:45)
[2025-01-17] MEDS ORDERED: Potassium Chloride 10 Meq Tablet SA PO SCH (09:00)
[2025-01-17 12:55] LABS: BASOPHILS ABSOLUTE AUTO 0.07 K/mm3 (0.00-0.23); BASOPHILS PERCENT AUTO 0 % (0-2); EOSINOPHILS ABSOLUTE AUTO 8.22 K/mm3 (0.00-0.68); EOSINOPHILS PERCENT AUTO 37 % (0-6); Hematocrit 38.5 % (37.0-53.0); Hemoglobin 13.3 g/dL (13.5-17.5); IMMATURE GRAN ABSOLUTE AUTO 0.94 K/mm3 (0.00-0.10); IMMATURE GRAN PERCENT AUTO 4 % (0-1); LYMPHOCYTES ABSOLUTE AUTO 1.95 K/mm3 (0.84-5.20); LYMPHOCYTES PERCENT AUTO 9 % (21-46); MONOCYTES ABSOLUTE AUTO 1.01 K/mm3 (0.16-1.47); MONOCYTES PERCENT AUTO 5 % (4-13); Mean Corpuscular HGB Conc 34.5 g/dL (31.5-36.5); Mean Corpuscular Volume 87 fL (80-100); NEUTROPHILS ABSOLUTE AUTO 9.92 K/mm3 (1.96-9.15); NEUTROPHILS PERCENT AUTO 45 % (41-73); NRBC ABSOLUTE 0.00 K/mm3 (0.00-0.02); NRBC Auto 0.0 /100 WBC (0.0-0.2); Platelet Count 95 K/mm3 (150-400); RDW Coefficient Variation 14.9 % (11.7-14.2); RDW Standard Deviation 47.5 fL (35.1-46.3)
[2025-01-17 15:16] VITALS: BP 130/78
--- NOTE | 2025-01-17 17:25 | NUR ---
SHIFT SUMMARY PATIENT IS A&OX4, TALKATIVE. WHEN UP AND AMBULATING TO TOILET 12L NASAL CANNULA, AIRVO AT 45% AND 30L WHEN IN THE BED. HE IS CONTINENT AND WALKS WITH SBA MOSTLY FOR LINES. DR. PEARSON TO CONSULT FOR WORSENING PNEUMONIA AND INCREASED OXYGEN NEEDS. HE IS ANXIOUS AND USES CALL SYSTEM NEEDED, ABLE TO MAKE NEEDS KNOWN. BED IS LOW AND CALL LIGHT IS WITHIN REACH.
[2025-01-17 20:33] VITALS: BP 155/93
[2025-01-18 04:53] VITALS: BP 140/92
[2025-01-18 05:42] LABS: BASOPHILS ABSOLUTE AUTO 0.13 K/mm3 (0.00-0.23); BASOPHILS PERCENT AUTO 0 % (0-2); EOSINOPHILS ABSOLUTE AUTO 12.59 K/mm3 (0.00-0.68); EOSINOPHILS PERCENT AUTO 43 % (0-6); Hematocrit 39.7 % (37.0-53.0); Hemoglobin 13.6 g/dL (13.5-17.5); IMMATURE GRAN ABSOLUTE AUTO 1.13 K/mm3 (0.00-0.10); IMMATURE GRAN PERCENT AUTO 4 % (0-1); LYMPHOCYTES ABSOLUTE AUTO 2.37 K/mm3 (0.84-5.20); LYMPHOCYTES PERCENT AUTO 8 % (21-46); MONOCYTES ABSOLUTE AUTO 1.11 K/mm3 (0.16-1.47); MONOCYTES PERCENT AUTO 4 % (4-13); Mean Corpuscular HGB Conc 34.3 g/dL (31.5-36.5); Mean Corpuscular Volume 86 fL (80-100); NEUTROPHILS ABSOLUTE AUTO 12.25 K/mm3 (1.96-9.15); NEUTROPHILS PERCENT AUTO 41 % (41-73); NRBC ABSOLUTE 0.00 K/mm3 (0.00-0.02); NRBC Auto 0.0 /100 WBC (0.0-0.2); Platelet Count 101 K/mm3 (150-400); RDW Coefficient Variation 14.7 % (11.7-14.2); RDW Standard Deviation 45.8 fL (35.1-46.3)
[2025-01-18 06:09] LABS: Alanine Aminotransfer (ALT/SGP 27.0 U/L (12-78); Albumin, Blood 2.6 g/dL (3.4-5.0); Albumin/Globulin Ratio 0.6 (0.8-1.8); Anion Gap 10.0 mmol/L (3-11); Aspartate Aminotrans (AST/SGOT 23.0 U/L (12-37); Bilirubin, Total 0.6 mg/dL (0.1-1.0); Blood Urea Nitrogen 32.0 mg/dL (8-24); CO2, Blood 25.0 mmol/L (21-32); Calcium, Blood 7.9 mg/dL (8.5-10.1); Chloride, Blood 103.0 mmol/L (98-108); Creatinine, Blood 1.62 mg/dL (0.60-1.20); Globulin, Blood 4.0 g/dL (2.2-4.0); Glucose, Blood 117.0 mg/dL (70-99); Magnesium, Blood 2.0 mg/dL (1.6-2.4); Phosphorus, Blood 2.5 mg/dL (2.5-4.9); Potassium, Blood 3.7 mmol/L (3.5-5.5); Sodium, Blood 134.0 mmol/L (136-145); Total Protein, Blood 6.6 g/dL (6.4-8.2)
[2025-01-18 07:38] VITALS: BP 145/100
--- NOTE | 2025-01-18 08:39 | NUR ---
SHIFT SUMMARY A/Ox4, O2 NEEDS INCREASED OVERNIGHT, RT CONTACTED. PT HAD BEEN AMBULATING TO RESTROOM ALMOST HOURLY THROUGHOUT SHIFT; DESATS IN 70s-80s ON RETURN WHILE ON 15L BY NC. WHILE RESTING PT SPO2 >90% WITH AIRVO AT 30L OR CPAP WITH 12L. RT RECOMMENDED MORE BEDREST, SUGGESTING RECOVERY PERIODS WERE NOT GREAT ENOUGH TO ADEQUATELY RESATURATE. EXTERNAL CATHETER APPLIED; PT TOLERATED WELL. DRY, HACKING COUGH CONTINUES. 2000ML FLUID RESTRICTION IN PLACE, WITH 800 ML FREE WATER.
[2025-01-18] MEDS ORDERED: Potassium Chloride 10 Meq Tablet SA PO SCH (09:00)
[2025-01-18] MEDS ORDERED: Vancomycin HCL 2,500 MG in NS 500 ML IV ONE (10:55)
[2025-01-18] MEDS ORDERED: Vancomycin (Pharmacy Consult) IV SCH (11:00)
[2025-01-18] MEDS ORDERED: Ipratropium/Albuterol SulF 2.5-0.5MG/3 ML Amp INH SCH (16:00)
[2025-01-18 16:07] VITALS: BP 137/78
[2025-01-18 19:31] VITALS: BP 159/97
[2025-01-19 04:16] VITALS: BP 138/100
[2025-01-19 06:00] LABS: BASOPHILS ABSOLUTE AUTO 0.08 K/mm3 (0.00-0.23); BASOPHILS PERCENT AUTO 0 % (0-2); EOSINOPHILS ABSOLUTE AUTO 7.14 K/mm3 (0.00-0.68); EOSINOPHILS PERCENT AUTO 33 % (0-6); Hematocrit 37.2 % (37.0-53.0); Hemoglobin 12.9 g/dL (13.5-17.5); IMMATURE GRAN ABSOLUTE AUTO 1.10 K/mm3 (0.00-0.10); IMMATURE GRAN PERCENT AUTO 5 % (0-1); LYMPHOCYTES ABSOLUTE AUTO 1.65 K/mm3 (0.84-5.20); LYMPHOCYTES PERCENT AUTO 8 % (21-46); MONOCYTES ABSOLUTE AUTO 0.72 K/mm3 (0.16-1.47); MONOCYTES PERCENT AUTO 3 % (4-13); Mean Corpuscular HGB Conc 34.7 g/dL (31.5-36.5); Mean Corpuscular Volume 86 fL (80-100); NEUTROPHILS ABSOLUTE AUTO 11.05 K/mm3 (1.96-9.15); NEUTROPHILS PERCENT AUTO 51 % (41-73); NRBC ABSOLUTE 0.02 K/mm3 (0.00-0.02); NRBC Auto 0.1 /100 WBC (0.0-0.2); Platelet Count 82 K/mm3 (150-400); RDW Coefficient Variation 14.5 % (11.7-14.2); RDW Standard Deviation 45.0 fL (35.1-46.3)
[2025-01-19 06:20] LABS: Albumin, Blood 2.4 g/dL (3.4-5.0); Anion Gap 11 mmol/L (3-11); Blood Urea Nitrogen 31 mg/dL (8-24); CO2, Blood 25 mmol/L (21-32); Calcium, Blood 8.0 mg/dL (8.5-10.1); Chloride, Blood 104 mmol/L (98-108); Creatinine, Blood 1.54 mg/dL (0.60-1.20); Glucose, Blood 177 mg/dL (70-99); Magnesium, Blood 2.1 mg/dL (1.6-2.4); Phosphorus, Blood 3.6 mg/dL (2.5-4.9); Potassium, Blood 4.2 mmol/L (3.5-5.5); Sodium, Blood 136 mmol/L (136-145)
[2025-01-19 06:37] LABS: BAND PERCENT MAN 2 % (0-8); BASOPHILS ABSOLUTE MAN 0.00 K/mm3 (0.00-0.23); BASOPHILS PERCENT MAN 0 % (0-2); EOSINOPHILS ABSOLUTE MAN 7.60 K/mm3 (0.00-0.68); EOSINOPHILS PERCENT MAN 35 % (0-6); LYMPHOCYTES ABSOLUTE MAN 1.30 K/mm3 (0.84-5.20); LYMPHOCYTES PERCENT MAN 6 % (21-46); METAMYELOCYTE ABSOLUTE MAN 0.43 K/mm3 (0.00-0.00); METAMYELOCYTE PERCENT MAN 2 % (0-0); MONOCYTES ABSOLUTE MAN 0.86 K/mm3 (0.16-1.47); MONOCYTES PERCENT MAN 4 % (4-13); MYELOCYTE ABSOLUTE MAN 0.21 K/mm3 (0.00-0.00); MYELOCYTE PERCENT MAN 1 % (0-0); NEUTROPHILS ABSOLUTE MAN 11.30 K/mm3 (1.96-9.15); SEG NEUTROPHILS PERCENT MAN 50 % (41-73)
--- NOTE | 2025-01-19 07:42 | NUR ---
SHIFT SUMMARY AT START OF SHIFT, PT LYING IN BED. FAMILY CAME TO VISIT. HE HAS BEEN PLEASANT AND COOPERATIVE WITH CARE. 2300, DR SANCHEZ AT BEDSIDE. PT IN PLEASANT MOOD. FLUID RESTRICTION CHANGED FROM 200ML WITH 800 FREE WATER TO 1500ML TOTAL. NO FREE WATER SPECIFICS.
[2025-01-19 08:03] VITALS: BP 152/98
[2025-01-19 16:49] VITALS: BP 147/95
--- NOTE | 2025-01-19 17:47 | NUR ---
NO ACUTE CHANGES, MULTIPLE DEMANDING NEEDS, MEDICATED FOR PAIN NAUSEA ITCHING, AND COUGHING, STAND BY ASSIST TO BSC, AIRVO AND BIPAP TO BE USED, PATIENT EASILY ANXIOUS, CALL LIGHT WITH IN REACH, WILL RELAY TO PM RN
[2025-01-19 20:53] VITALS: BP 168/107
[2025-01-20 03:40] VITALS: BP 138/85
[2025-01-20 04:37] LABS: BASOPHILS ABSOLUTE AUTO 0.09 K/mm3 (0.00-0.23); BASOPHILS PERCENT AUTO 0 % (0-2); EOSINOPHILS ABSOLUTE AUTO 4.00 K/mm3 (0.00-0.68); EOSINOPHILS PERCENT AUTO 17 % (0-6); Hematocrit 39.2 % (37.0-53.0); Hemoglobin 13.6 g/dL (13.5-17.5); IMMATURE GRAN ABSOLUTE AUTO 1.43 K/mm3 (0.00-0.10); IMMATURE GRAN PERCENT AUTO 6 % (0-1); LYMPHOCYTES ABSOLUTE AUTO 1.84 K/mm3 (0.84-5.20); LYMPHOCYTES PERCENT AUTO 8 % (21-46); MONOCYTES ABSOLUTE AUTO 1.00 K/mm3 (0.16-1.47); MONOCYTES PERCENT AUTO 4 % (4-13); Mean Corpuscular HGB Conc 34.7 g/dL (31.5-36.5); Mean Corpuscular Volume 86 fL (80-100); NEUTROPHILS ABSOLUTE AUTO 14.70 K/mm3 (1.96-9.15); NEUTROPHILS PERCENT AUTO 64 % (41-73); NRBC ABSOLUTE 0.00 K/mm3 (0.00-0.02); NRBC Auto 0.0 /100 WBC (0.0-0.2); Platelet Count 92 K/mm3 (150-400); RDW Coefficient Variation 14.6 % (11.7-14.2); RDW Standard Deviation 45.6 fL (35.1-46.3)
[2025-01-20 04:53] LABS: Albumin, Blood 2.6 g/dL (3.4-5.0); Anion Gap 8 mmol/L (3-11); Blood Urea Nitrogen 40 mg/dL (8-24); CO2, Blood 26 mmol/L (21-32); Calcium, Blood 8.3 mg/dL (8.5-10.1); Chloride, Blood 105 mmol/L (98-108); Creatinine, Blood 1.56 mg/dL (0.60-1.20); Glucose, Blood 145 mg/dL (70-99); Magnesium, Blood 2.3 mg/dL (1.6-2.4); Phosphorus, Blood 3.3 mg/dL (2.5-4.9); Potassium, Blood 4.2 mmol/L (3.5-5.5); Sodium, Blood 135 mmol/L (136-145)
--- NOTE | 2025-01-20 06:46 | NUR ---
SHIFT SUMMARY: Pt admitted for PNA and is a full code. Is alert and able to make needs known. ADLs have been SBA. pain has been managed with PRN medications. Used bipap through the night SPO2 maintained greater than 90%. Bipap had 6lpm bleed in.
[2025-01-20 07:29] VITALS: BP 170/102
[2025-01-20 11:36] LABS: Vancomycin, Trough 16.3 ug/mL (5.0-10.0)
[2025-01-20 15:11] VITALS: BP 138/84
[2025-01-20] MEDS ORDERED: Nystatin 100,000 Unit/ML Susp 5 ML UDC SS SCH (17:00)
--- NOTE | 2025-01-20 18:34 | NUR ---
END OF SHIFT PATIENT A&OX4 TODAY. ABLE TO MAKE NEEDS KNOWN. IND IN ROOM TO BATHROOM OR BSC. AC/HS CBG. USING NC 8L WHEN AWAKE AND FOR AMBULATING. BIPAP AT NIGHT AND WHEN SLEEPING. PATIENT ABLE TO MAKE THESE CHANGES IND. FLUID RESTRICTION 1500. NO OTHER CONCERNS FOR THIS SHIFT.
[2025-01-20 19:55] VITALS: BP 156/101
[2025-01-21 04:54] LABS: BASOPHILS ABSOLUTE AUTO 0.05 K/mm3 (0.00-0.23); BASOPHILS PERCENT AUTO 0 % (0-2); EOSINOPHILS ABSOLUTE AUTO 2.18 K/mm3 (0.00-0.68); EOSINOPHILS PERCENT AUTO 19 % (0-6); Hematocrit 39.0 % (37.0-53.0); Hemoglobin 13.1 g/dL (13.5-17.5); IMMATURE GRAN ABSOLUTE AUTO 0.47 K/mm3 (0.00-0.10); IMMATURE GRAN PERCENT AUTO 4 % (0-1); LYMPHOCYTES ABSOLUTE AUTO 1.51 K/mm3 (0.84-5.20); LYMPHOCYTES PERCENT AUTO 13 % (21-46); MONOCYTES ABSOLUTE AUTO 0.61 K/mm3 (0.16-1.47); MONOCYTES PERCENT AUTO 5 % (4-13); Mean Corpuscular HGB Conc 33.6 g/dL (31.5-36.5); Mean Corpuscular Volume 88 fL (80-100); NEUTROPHILS ABSOLUTE AUTO 6.84 K/mm3 (1.96-9.15); NEUTROPHILS PERCENT AUTO 59 % (41-73); NRBC ABSOLUTE 0.00 K/mm3 (0.00-0.02); NRBC Auto 0.0 /100 WBC (0.0-0.2); Platelet Count 70 K/mm3 (150-400); RDW Coefficient Variation 14.5 % (11.7-14.2); RDW Standard Deviation 46.1 fL (35.1-46.3)
[2025-01-21 05:11] LABS: Albumin, Blood 2.7 g/dL (3.4-5.0); Anion Gap 9 mmol/L (3-11); Blood Urea Nitrogen 42 mg/dL (8-24); CO2, Blood 28 mmol/L (21-32); Calcium, Blood 8.2 mg/dL (8.5-10.1); Chloride, Blood 103 mmol/L (98-108); Creatinine, Blood 1.61 mg/dL (0.60-1.20); Glucose, Blood 116 mg/dL (70-99); Magnesium, Blood 2.2 mg/dL (1.6-2.4); Phosphorus, Blood 3.2 mg/dL (2.5-4.9); Potassium, Blood 3.9 mmol/L (3.5-5.5); Sodium, Blood 136 mmol/L (136-145)
[2025-01-21 06:08] VITALS: BP 152/97
--- NOTE | 2025-01-21 07:35 | NUR ---
SHIFT SUMMARY PATIENT A&OX4, ABLE TO MAKE NEEDS KNOWN, EDUCATED ABOUT CONDITION, HAD A SHOWER, HAD A BM, BED RAILS UP X3, CALL LIGHT WITHIN REACH, NO POINTS OF DISTRESS.
[2025-01-21 07:38] VITALS: BP 143/103
[2025-01-21 10:07] LABS: IMMUNOGLOBULIN E 619 kU/L (<=214)
[2025-01-21] MEDS ORDERED: Furosemide 10 MG / ML 2ML Vial IV ONE (13:30)
[2025-01-21 15:26] VITALS: BP 142/95
[2025-01-21 16:12] LABS: Source, Urine Voided
[2025-01-21 16:18] LABS: Bilirubin, Urine Neg (Neg); Glucose Qualitative, Urine 4+ (Neg); Ketones, Urine Neg (Neg); Leukocyte Esterase, Urine Neg (Neg); Protein, Urine Neg (Neg); Specific Gravity, Urine 1.010 (1.003-1.022); Urobilinogen, Urine NORM (Normal)
[2025-01-21 16:23] LABS: Color, Urine Pale Yellow (P-Yellow)
[2025-01-21 16:24] LABS: White Blood Cells, Urine 0-2 /hpf (0-5)
[2025-01-21 16:25] LABS: Yeast/Fungi Urine Rare /hpf
--- NOTE | 2025-01-21 18:14 | NUR ---
SHIFT SUMMARY PT A&OX4, VSS, NON-TELE, 7L O2 NC WHILE AWAKE, SOB WITH EXERTION, CPAP WITH 6 L BLEED IN WHILE SLEEPING. PT IND IN ROOM TO BATHROOM. C/O HEADACHE AND NAUSEA, CONTROLLED WITH PRN OXYCODONE AND ZOFRAN. FLUID RESTRICTION INCREASED TO 2000 ML. PT C/O RT FLANK PAIN WHILE URINATING THIS AFTERNOON, DR. SANCHEZ NOTIFIED AND CT ORDERED AND OBTAINED, NO EVIDENCE OF RENAL CALCULI. PT PLEASANT AND COOPERATIVE WITH CARE, CALL LIGHT IN REACH.
[2025-01-21 20:47] VITALS: BP 146/89
[2025-01-22 00:06] VITALS: BP 124/89
--- NOTE | 2025-01-22 04:31 | NUR ---
NERVE SPECIALIST SUMMARY VSS. ALERT AND ORIENTED. FAMILY WAS AT BEDSIDE DURING SHIFT START BUT LEFT BEFORE HS. UP AD SURJIT TO BATHROOM/COMMODE. FLUID RESTRICTION MAINTAINED. LUNG SOUNDS DIMINISHED IN LOWER LOBES. ON CPAP AT NIGHT WITH O2 BLEED IN. SATS WNL. HAS BEEN RESTING QUIETLY WITH FEW INTERRUPTIONS. CALL LIGHT IN REACH, RAILS UP X 2 AND BED IN LOW POSITONI FOR SAFETY. WILL CONT TO MONITOR.
[2025-01-22 05:26] LABS: Hematocrit 39.2 % (37.0-53.0); Hemoglobin 13.0 g/dL (13.5-17.5)
[2025-01-22 05:51] LABS: Albumin, Blood 2.7 g/dL (3.4-5.0); Anion Gap 8 mmol/L (3-11); Blood Urea Nitrogen 41 mg/dL (8-24); CO2, Blood 28 mmol/L (21-32); Calcium, Blood 8.1 mg/dL (8.5-10.1); Chloride, Blood 103 mmol/L (98-108); Creatinine, Blood 1.43 mg/dL (0.60-1.20); Glucose, Blood 122 mg/dL (70-99); Magnesium, Blood 2.1 mg/dL (1.6-2.4); Phosphorus, Blood 3.1 mg/dL (2.5-4.9); Potassium, Blood 4.0 mmol/L (3.5-5.5); Sodium, Blood 135 mmol/L (136-145)
[2025-01-22 07:59] VITALS: BP 122/92
[2025-01-22 15:31] VITALS: BP 145/94
--- NOTE | 2025-01-22 16:17 | NUR ---
SHIFT SUMMARY- PT ALERT AND ORIENTED X4. HIS O2 HAS BEEN TITRATED DOWN BY RT TODAY, HE IS CURRENTLY ON 3L AND SATS ARE STAYING IN THE 96% RANGE. PLAN IS FOR POSSIBLE DC HOME EARLY TOMORROW WITH CONTIUNUED STEROID USE FOR 4 WEEKS. PT WILL FOLLOW UP WITH DR DELGADO'S OFFICE. PT HAS BEEN INDEPENDENT IN THE ROOM ALL DAY AND IS USING THE BSC FOR VOIDING ACCURATE MEASUREMENT. PT IS CURRENTLY IN BED, CALL LIGHT IN REACH NO S&S OF DISTRESS NOTED. WILL PASS ON TO NIGHT RN IN BEDSIDE REPORT.
[2025-01-22 19:26] VITALS: BP 131/87
[2025-01-23 05:00] LABS: Hematocrit 39.7 % (37.0-53.0); Hemoglobin 13.5 g/dL (13.5-17.5)
[2025-01-23 05:01] VITALS: BP 142/103
[2025-01-23 05:19] LABS: Albumin, Blood 2.9 g/dL (3.4-5.0); Anion Gap 7 mmol/L (3-11); Blood Urea Nitrogen 44 mg/dL (8-24); CO2, Blood 29 mmol/L (21-32); Calcium, Blood 8.0 mg/dL (8.5-10.1); Chloride, Blood 104 mmol/L (98-108); Creatinine, Blood 1.56 mg/dL (0.60-1.20); Glucose, Blood 141 mg/dL (70-99); Magnesium, Blood 2.1 mg/dL (1.6-2.4); Phosphorus, Blood 3.2 mg/dL (2.5-4.9); Potassium, Blood 4.0 mmol/L (3.5-5.5); Sodium, Blood 136 mmol/L (136-145)
[2025-01-23 07:20] VITALS: BP 143/90
--- NOTE | 2025-01-23 07:33 | NUR ---
SHIFT SUMMARY AT START OF SHIFT, PT UP, VISITING WITH DAUGHTER AND GRANDDAUGHTER. PT IN GOOD SPIRITS. RESPIRATORY THERAPIST REQUESTED DOCTOR TO ORDER NOC OX STUDY WITH HOME CPAP. HOSPITALIST STATED I DON T KNOW WHAT THAT MEANS. PULMONOLOGY IS ONBOARD. THEY CAN DEAL WITH THAT IN THE MORNING. AND SON VISITING. FAMILY LEFT APPROX 2230. PT MEDICATED FOR PAIN PER EMAR. CPAP IN PLACE. PT LYING DOWN TO SLEEP. PT SLEPT THROUGH NIGHT, WAKING TO VOID. PT IN PLEASANT MOOD UPON WAKING.
[2025-01-23] MEDS ORDERED: Colchicine 0.6 MG TAB PO SCH (09:00)
[2025-01-23 12:05] LABS: Vancomycin, Trough 20.4 ug/mL (5.0-10.0)
[2025-01-23 17:00] VITALS: BP 149/95
[2025-01-23 19:37] VITALS: BP 138/93
--- NOTE | 2025-01-23 19:56 | NUR ---
SHIFT SUMMARY- PT ALERT, ORIENTED AND INDEPENDENT IN THE ROOM. HE HAD A HOME O2 EVAL AND IS NO LONGER ON O2. FAMILY WILL BE ARRIVING WITH THE PT HOME CPAP MACHINE FOR NIGHT OXIMETRY STUDY. PLAN TO DC THE PT HOME TOMORROW AFTER THE STUDY IS COMPLETED. BEDSIDE REPORT COMPLETED WITH NIGHT RN. NO S&S OF DISTRESS NOTED AT THE TIME OF REPORT.
[2025-01-24 06:43] LABS: Albumin, Blood 2.9 g/dL (3.4-5.0); Anion Gap 7 mmol/L (3-11); Blood Urea Nitrogen 40 mg/dL (8-24); CO2, Blood 28 mmol/L (21-32); Calcium, Blood 8.1 mg/dL (8.5-10.1); Chloride, Blood 107 mmol/L (98-108); Creatinine, Blood 1.41 mg/dL (0.60-1.20); Glucose, Blood 98 mg/dL (70-99); Magnesium, Blood 2.1 mg/dL (1.6-2.4); Phosphorus, Blood 3.1 mg/dL (2.5-4.9); Potassium, Blood 4.2 mmol/L (3.5-5.5); Sodium, Blood 138 mmol/L (136-145)
--- NOTE | 2025-01-24 07:01 | NUR ---
SHIFT SUMMARY AT START OF SHIFT, PT USING NEBULIZER BREATHING TX. PTS TO BRING IN HIS HOME CPAP FOR NOC OX EVAL. PT IN PLEASANT MOOD. PT FAMILY VISITING. PT HAD SLEEP STUDY PERFORMED; DR SANCHEZ STATED PT LABS LOOK GOOD. WANTS TO SEE HIM IN HIS OFFICE MONDAY AFTER 1400. PT HAPPY TO GET TO GO HOME.
[2025-01-24 07:46] VITALS: BP 129/91
[2025-01-24] MEDS ORDERED: BUME1 PO (13:15)
[2025-01-24] MEDS ORDERED: COLCHICINE0.6 MG PO (13:15)
[2025-01-24] MEDS ORDERED: ASPI81CH PO (13:15)
[2025-01-24] MEDS ORDERED: DOXY100 PO (13:16)
[2025-01-24] MEDS ORDERED: [UNRECOGNIZED DRUG - CODE] MT (13:17)
[2025-01-24] MEDS ORDERED: POTA10T PO (13:17)
[2025-01-24] MEDS ORDERED: PRED20 PO (13:18)
[2025-01-24] MEDS ORDERED: ALBU90OI INH (13:20)
[2025-01-24] MEDS ORDERED: BUDESONIDE-FO10.2 G2 INH (13:20)
[2025-01-24] MEDS ORDERED: CEFP200 PO (13:21)
[2025-01-24] MEDS ORDERED: EPIPEN0.3 MG/0.3 IM (13:22)
[2025-01-24] MEDS ORDERED: NOVOLIN N100 UNIT/2 SC (13:23)
--- NOTE | 2025-01-24 14:37 | NUR ---
DISCHARGE NOTE- PT WAS GIVEN VERBAL AND WRITTEN DISCHARGE INSTRUCTIONS AND ACKNOWLEDGED UNDERSTANDING OF THEM. IV DC'D PRIOR TO DISCHARGE, NO S&S OF DISTRESS NOTED AT THE TIME OF DISCHARGE. PT ESCORTED OUT VIA WC BY THE CLARK DRIVER ON ROOM AIR. SPOUSE PRESENT AT THE TIME OF DISCHARGE AND FOR THE EDUCATION.
== END 2025-01-24 14:45 | disposition home or self-care (01) | DRG 871 ==
LOC: ER 15:36 → PCU 17:08 → MEDS 17:08 → PCU 18:02 → MEDS 01-15 23:50 → ENPENDDIS 01-24 11:25 → MEDS 01-24 14:45
PROVIDERS: Emergency Medicine; Internal Medicine; Internal Medicine Critical Care Medicine; Internal Medicine Nephrology; Physician Assistant; ADMIT Family Medicine
DX: A41.9 Sepsis, unspecified organism (principal); I21.4 Non-ST elevation (NSTEMI) myocardial infarction; J18.9 Pneumonia, unspecified organism; J96.01 Acute respiratory failure with hypoxia; I50.31 Acute diastolic (congestive) heart failure; N17.9 Acute kidney failure, unspecified; E87.1 Hypo-osmolality and hyponatremia; I31.9 Disease of pericardium, unspecified; I31.39 Other pericardial effusion (noninflammatory); J82.82 Acute eosinophilic pneumonia; B37.0 Candidal stomatitis; Z68.41 Body mass index [BMI] 40.0-44.9, adult; R65.20 Severe sepsis without septic shock; F32.A Depression, unspecified; M19.90 Unspecified osteoarthritis, unspecified site; E78.5 Hyperlipidemia, unspecified; E11.51 Type 2 diabetes mellitus with diabetic peripheral angiopathy without gangrene; I11.0 Hypertensive heart disease with heart failure; I50.9 Heart failure, unspecified; G47.33 Obstructive sleep apnea (adult) (pediatric); K42.9 Umbilical hernia without obstruction or gangrene; K74.60 Unspecified cirrhosis of liver; E66.9 Obesity, unspecified; N18.30 Chronic kidney disease, stage 3 unspecified; Z86.16 Personal history of COVID-19
CPT/HCPCS: 36415; 71045; 74176; 76770; 78580; 80048; 80053; 80061; 80069; 80202; 81001; 82533; 82550; 82785; 82803; 82947; 83605; 83735; 83880; 84100; 84145; 84443; 84484; 84550; 85014; 85018; 85025; 85520; 85610; 85651; 85730; 86141; 87040; 87637; 93005; 93010; 93308; 93321; 94640; 94660; 94664; 94760; 94761; 94762; 96365; 96368; 96375; 99285-25; A9270; A9540; C8929; J0456; J0692; J0696; J1200; J1644; J1720; J1815; J1938; J2270; J2405; J2543; J2919; J3010; J3373; J7030; J7040; J7050; J7060; J7512; Q9957

== ENCOUNTER → 2025-01-13 | Outpatient (CLI) | payer OTHER ==
[2025-01-13 14:35] LABS: BASOPHILS ABSOLUTE AUTO 0.06 K/mm3 (0.00-0.23); BASOPHILS PERCENT AUTO 0 % (0-2); EOSINOPHILS ABSOLUTE AUTO 3.94 K/mm3 (0.00-0.68); EOSINOPHILS PERCENT AUTO 16 % (0-6); Hematocrit 45.1 % (37.0-53.0); Hemoglobin 15.7 g/dL (13.5-17.5); IMMATURE GRAN ABSOLUTE AUTO 0.38 K/mm3 (0.00-0.10); IMMATURE GRAN PERCENT AUTO 2 % (0-1); LYMPHOCYTES ABSOLUTE AUTO 2.22 K/mm3 (0.84-5.20); LYMPHOCYTES PERCENT AUTO 9 % (21-46); MONOCYTES ABSOLUTE AUTO 1.58 K/mm3 (0.16-1.47); MONOCYTES PERCENT AUTO 6 % (4-13); Mean Corpuscular HGB Conc 34.8 g/dL (31.5-36.5); Mean Corpuscular Volume 85 fL (80-100); NEUTROPHILS ABSOLUTE AUTO 17.18 K/mm3 (1.96-9.15); NEUTROPHILS PERCENT AUTO 68 % (41-73); NRBC ABSOLUTE 0.00 K/mm3 (0.00-0.02); NRBC Auto 0.0 /100 WBC (0.0-0.2); Platelet Count 163 K/mm3 (150-400); RDW Coefficient Variation 14.6 % (11.7-14.2); RDW Standard Deviation 45.1 fL (35.1-46.3)
[2025-01-13 14:45] LABS: Alanine Aminotransfer (ALT/SGP 24.0 U/L (12-78); Albumin, Blood 2.8 g/dL (3.4-5.0); Albumin/Globulin Ratio 0.7 (0.8-1.8); Anion Gap 18.0 mmol/L (3-11); Aspartate Aminotrans (AST/SGOT 23.0 U/L (12-37); Bilirubin, Total 0.9 mg/dL (0.1-1.0); Blood Urea Nitrogen 44.0 mg/dL (8-24); CO2, Blood 23.0 mmol/L (21-32); Calcium, Blood 8.3 mg/dL (8.5-10.1); Chloride, Blood 100.0 mmol/L (98-108); Creatinine, Blood 2.64 mg/dL (0.60-1.20); Globulin, Blood 4.1 g/dL (2.2-4.0); Glucose, Blood 186.0 mg/dL (70-99); Potassium, Blood 4.7 mmol/L (3.5-5.5); Sodium, Blood 136.0 mmol/L (136-145); Total Protein, Blood 6.9 g/dL (6.4-8.2)
== END ==
LOC: LAB 14:28 → LAB SHORT 14:28
PROVIDERS: Physician Assistant Medical
DX: I95.9 Hypotension, unspecified (principal); R10.84 Generalized abdominal pain
CPT/HCPCS: 80053; 84484; 85025